=== PATIENT | female | born 1965 | race Caucasian/White ===

== ENCOUNTER 2016-08-03 12:06 | Emergency (ER) | payer SELFPAY ==
[2016-08-03 12:10] VITALS: BP 177/99; PULSE 96; TEMP 98.4; BMI 34.0
--- NOTE | 2016-08-03 12:55 | PDOC ---
History of Present Illness - General History Source: Patient Exam Limitations: No Limitations - History of Present Illness Initial Comments: 08/03/16 12:58 The patient is a 51-year-old woman with no past medical history who presents to the emergency department for further evaluation of left sided numbness and tingling sensations for the past 2 weeks. No fall, trauma. Patient states that for the past 2 weeks, she has been experiencing left sided numbing and tingling sensations. She states that this morning, her symptoms worsen, as she experienced a throbbing headache. She took 2 Motrin tablets, which helped alleviate her headache. 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 She reports she is aware of the steps to rule out a stroke, and she examined her self. She states she was able to perform all the activities. She denies noting any changes in strength and sensations on both sides and denies any slurred speech. She also states that she checks her sugar daily (as he is a diabetic) and initially attributed her tingling sensations to an elevated sugar,but states that her blood glucose was 90. No other complaints. No fever, chills, generalized weakness. No chest pain, lightheadedness, dizziness, palpitations, headache, visual changes, neck stiffness, neck pain, speech difficulty, confusion, shortness of breath, nausea, vomiting. Allergies: No Known Drug Allergies Past Surgical History: None reported Social History: Current everyday cigarette smoker (approximately 10/day). No ETOH use. No recreational drug use. Primary Care Physician: Dr. Jim Mendez [phone] <Anita Bolaños - Last Filed: 08/03/16 17:34> <Say Diaz - Last Filed: 08/03/16 18:43> - General Chief Complaint: CVA/TIA Stated Complaint: LT SIDE NUMBNESS Time Seen by Provider: 08/03/16 12:52 Past History <Anita Bolaños - Last Filed: 08/03/16 17:34> - Past Medical History Other medical history: NONE - Surgical History Appendectomy: Yes - Psycho/Social/Smoking Cessation Hx Anxiety: No Suicidal Ideation: No Smoking History: Current every day smoker Number of Cigarettes Smoked Daily: 10 Information on smoking cessation initiated: No Hx Alcohol Use: No Drug/Substance Use Hx: No Substance Use Type: None <Say Diaz - Last Filed: 08/03/16 18:43> - Past Medical History Allergies/Adverse Reactions: Allergies Allergy/AdvReac Type Severity Reaction Status Date / Time No Known Allergies Allergy Verified 08/03/16 12:10 Home Medications: Ambulatory Orders Aspirin [Tylor Chewable] 81 mg PO DAILY 08/03/16 Review of Systems - Review of Systems Able to Perform ROS?: Yes Comments:: 08/03/16 12:58 GENERAL/CONSTITUTIONAL: No fever or chills. No weakness. HEAD, EYES, EARS, NOSE AND THROAT: No change in vision. No ear pain or discharge. No sore throat. CARDIOVASCULAR: No chest pain or shortness of breath. RESPIRATORY: No cough, wheezing, or hemoptysis. GASTROINTESTINAL: No nausea, vomiting, diarrhea or constipation. GENITOURINARY: No dysuria, frequency, or change in urination. MUSCULOSKELETAL: No joint or muscle swelling or pain. No neck or back pain. SKIN: No rash NEUROLOGIC: Yes: Headache. Left sided weakness. No vertigo, loss of consciousness. ENDOCRINE: No increased thirst. No abnormal weight change. HEMATOLOGIC/LYMPHATIC: No anemia, easy bleeding, or history of blood clots. ALLERGIC/IMMUNOLOGIC: No hives or skin allergy. <Anita Bolaños - Last Filed: 08/03/16 17:34> *Physical Exam - Vital Signs Last Vital Signs Temp Pulse Resp BP Pulse Ox 98.4 F 96 H 20 177/99 98 08/03/16 12:07 08/03/16 12:07 08/03/16 12:07 08/03/16 12:07 08/03/16 12:07 - Physical Exam Comments: 08/03/16 12:58 GENERAL: Awake, alert, and fully oriented, in no acute distress HEAD: No signs of trauma EYES: PERRLA, EOMI, sclera anicteric, conjunctiva clear ENT: Auricles normal inspection, hearing grossly normal, nares patent, oropharynx clear without exudates. Moist mucosa NECK: Normal ROM, supple, no lymphadenopathy, JVD, or masses LUNGS: Breath sounds equal, clear to auscultation bilaterally. No wheezes, and no crackles HEART: Regular rate and rhythm, normal S1 and S2, no murmurs, rubs or gallops ABDOMEN: Soft, nontender, normoactive bowel sounds. No guarding, no rebound. No masses EXTREMITIES: Normal range of motion, no edema. No clubbing or cyanosis. No cords, erythema, or tenderness NEUROLOGICAL: Cranial nerves II through XII grossly intact. <Anita Bolaños - Last Filed: 08/03/16 17:34> - Vital Signs Last Vital Signs Temp Pulse Resp BP Pulse Ox 98.4 F 96 H 20 177/99 98 08/03/16 12:07 08/03/16 12:07 08/03/16 12:07 08/03/16 12:07 08/03/16 12:07 <Say Diaz - Last Filed: 08/03/16 18:43> Heart Score/ECG Review #1 08/03/16 12:49 EKG reviewed and interpreted by me. IMPRESSION: Sinus rhythm with occasional premature ventricular complexes. Otherwise normal EKG. <Anita Bolaños - Last Filed: 08/03/16 17:34> ED Treatment Course - LABORATORY CBC & Chemistry Diagram: 08/03/16 13:49 08/03/16 13:49 <Anita Bolaños - Last Filed: 08/03/16 17:34> - LABORATORY CBC & Chemistry Diagram: 08/03/16 13:49 08/03/16 13:49 <Say Diaz - Last Filed: 08/03/16 18:43> Medical Decision Making - Medical Decision Making 08/03/16 17:[address] Robles 08/03/16 17:12 Call placed to [facility]. Dr. Villalobos coat ironer hand. 08/03/16 17:[address] Villalobos coat ironer hand. <Anita Bolaños - Last Filed: 08/03/16 17:34> *DC/Admit/Observation/Transfer - Attestations Scribe Attestion: 08/03/16 12:58 Documentation prepared by Anita Bolaños, acting as medical insurance biller for Say Diaz DO. <Anita Bolaños - Last Filed: 08/03/16 17:34> - Discharge Dispostion Admit: No - Attestations Physician Attestion: 08/03/16 12:52 I, Dr. Say Diaz, attest that this document has been prepared under my direction and personally reviewed by me in its entirety. I further attest, that it accurately reflects all work, treatment, procedures and medical decision -making performed by me. <Say Diaz - Last Filed: 08/03/16 18:43> Diagnosis at time of Disposition: Paresthesia - Discharge Dispostion Disposition: HOME Condition at time of disposition: Good - Referrals Referrals: Vanessa Fernandez MD [Primary Care Provider] - Raimundo Salamanca MD [Staff Physician] - - Patient Instructions Printed Discharge Instructions: DI for Numbness/tingling Additional Instructions: Kristi- Sorry this took so long today. Every one of your tests was normal and I was unable to find the cause. Please see Dr. Salamanca tomorrow - Call his office first thing in the morning for the appointment time. Best- Dr. Say Diaz
[2016-08-03 13:59] LABS: BASOPHIL 0.4 % (0-2.0); EOSINOPHIL 1.8 % (0-4.5); MCH 30.4 pg (25.7-33.7); MCHC 33.7 g/dl (32.0-36.0); MEAN CELL VOLUME 90.3 fl (80-96); MEAN PLT VOLUME 8.3 fl (7.5-11.1); NEUTROPHILS 60.6 % (42.8-82.8); PLATELET COUNT 245 K/MM3 (134-434); RDW 13.2 % (11.6-15.6); WHITE BLOOD COUNT 8.8 K/mm3 (4.0-10.0)
[2016-08-03 14:20] LABS: INR 1.01 (0.82-1.09); PROTHROMBIN TIME (PATIENT) 11.1 SEC (9.98-11.88)
[2016-08-03 14:34] LABS: ALBUMIN 3.8 g/dl (3.4-5.0); ANION GAP 12 (8-16); CALCIUM 9.2 mg/dL (8.5-10.1); CO2 25 mmol/L (21-32); CREATININE 0.5 mg/dL (0.55-1.02); GLUCOSE,RANDOM 78 mg/dL (74-106); MAGNESIUM 1.8 mg/dL (1.8-2.4); SGPT/ALT 24 U/L (12-78)
[2016-08-03 14:39] LABS: ALK PHOS 83 U/L (45-117); BILIRUBIN,TOTAL 0.3 mg/dL (0.2-1.0); TOT PROT 7.7 g/dl (6.4-8.2); TROPONIN I < 0.02 ng/ml (0.00-0.05)
[2016-08-03 14:44] LABS: SGOT/AST 34 U/L (15-37)
[2016-08-03 15:39] LABS: THYROID STIMULATING HORMONE 1.54 uIU/ml (0.358-3.74)
--- NOTE | 2016-08-04 16:18 | EKG ---
Test Reason : Blood Pressure : / mmHG Vent. Rate : 069 BPM Atrial Rate : 069 BPM P-R Int : 166 ms QRS Dur : 078 ms QT Int : 388 ms P-R-T Axes : 054 029 013 degrees QTc Int : 415 ms SINUS RHYTHM WITH OCCASIONAL PREMATURE VENTRICULAR COMPLEXES OTHERWISE NORMAL ECG NO PREVIOUS ECGS AVAILABLE Confirmed by UTE BALDWIN, TYRONE ([id number]) on 08/04/2016 4:18:14 PM Referred By: Confirmed By:TYRONE UNGER MD
== END 2016-08-03 18:52 | disposition home or self-care (01) ==
LOC: JER 12:06
DX: R20.2 Paresthesia of skin (principal); F17.210 Nicotine dependence, cigarettes, uncomplicated
CPT/HCPCS: 36415; 70450-TC; 71020-TC; 80053; 82550; 82607; 82746; 83735; 84443; 84484; 85025; 85610; 93005; 93010; 99285-25

== ENCOUNTER 2017-07-06 18:15 | Emergency (ER) | payer OTHER ==
[2017-07-06 18:24] VITALS: BP 153/100; PULSE 91; TEMP 97.8; BMI 29.2
--- NOTE | 2017-07-06 18:27 | PDOC ---
Rapid Medical Evaluation Time Seen by Provider: 07/06/17 18:22 Medical Evaluation: Allergies Allergy/AdvReac Type Severity Reaction Status Date / Time No Known Allergies Allergy Verified 08/03/16 12:10 07/06/17 18:22 The patient presents with a chief complaint of: chest pain this morning and took two asa and then it went away now with a c/o lightheaded. I have performed a brief in-person evaluation of this patient; Pertinent physical exam findings: ambulatory, in no respiratory distress I have ordered the following: Pt found to have blood shot eyes and now states she feels nausea and slurred speech "talking weird" Pt needs to have Head CT and sent immediately tot he back for a r/o TIA cva The patient will proceed to the ED for further evaluation.
[2017-07-06] MEDS ORDERED: SODIUM CHLORIDE 0.9% 1000 ML INFUS.BAG IV ONE (18:42)
[2017-07-06] MEDS ORDERED: ONDANSETRON 4 MG/2 ML VIAL IVPUSH ONE (18:42)
[2017-07-06] MEDS ORDERED: FAMOTIDINE 20 MG/50 ML IVPB 20 MG/50 ML MG IVPB ONE ×2 (18:42→19:05)
--- NOTE | 2017-07-06 18:46 | PDOC ---
History of Present Illness <Lucille Porter - Last Filed: 07/06/17 23:14> - General History Source: Patient Exam Limitations: No Limitations - History of Present Illness Initial Comments: 07/07/17 01:47 Patient is a 52 year old female with no significant past medical history who presents to the ED with complaints of chest discomfort that began this morning at 8 am. Patient reports waking up this morning to go to work when she began to experience slight chest discomfort with associated Sob that she initially thought to be due to stress. She reports experiencing intermittent nausea, dizziness like the room is spinning, and weakness stating she felt like she was going to faint. Patient reports going home early from work due to symptoms and began to experience slight facial and bilateral fingertip tingling as well as feeling like she was not speaking correctly while reading out loud. Denies vomiting, fever, chills. Denies contact with sick individuals, out of state traveling. Denies trauma to affected area. Denies Allergies: None Social history: Current smoker. No alcohol. No illicit drugs. FamHx: Dad- Heart attack 61. Diabetes, Htn. Surgical history: Appendectomy PMD: Dr. Fernandez <Jose Donald - Last Filed: 07/07/17 01:47> - General Chief Complaint: CVA/TIA Stated Complaint: HEADACHE/TINGLING SENSATION Time Seen by Provider: 07/06/17 18:22 Past History - Past Medical History COPD: No - Surgical History Appendectomy: Yes - Immunization History Immunization Up to Date: Yes - Suicide/Smoking/Psychosocial Hx Smoking History: Current every day smoker Number of Cigarettes Smoked Daily: 20 Information on smoking cessation initiated: No Hx Alcohol Use: No Drug/Substance Use Hx: No Substance Use Type: None <Lucille Porter - Last Filed: 07/06/17 23:14> <Jose Donald - Last Filed: 07/07/17 01:47> - Past Medical History Allergies/Adverse Reactions: Allergies Allergy/AdvReac Type Severity Reaction Status Date / Time No Known Allergies Allergy Verified 07/06/17 18:22 Home Medications: Ambulatory Orders Aspirin [Tylor Chewable] 81 mg PO DAILY 08/03/16 Review of Systems - Review of Systems Able to Perform ROS?: Yes Comments:: 07/07/17 01:47 GENERAL/CONSTITUTIONAL: +weakness. No fever or chills.. HEAD, EYES, EARS, NOSE AND THROAT: No change in vision. No ear pain or discharge. No sore throat. GASTROINTESTINAL: No nausea, vomiting, diarrhea or constipation. GENITOURINARY: No dysuria, frequency, or change in urination. CARDIOVASCULAR: +Chest discomfort. +Sob. RESPIRATORY: No cough, wheezing, or hemoptysis. MUSCULOSKELETAL: No joint or muscle swelling or pain. No neck or back pain. SKIN: No rash NEUROLOGIC: +Dizziness. +Altered speech. No headache, vertigo, loss of consciousness, or change in strength/sensation. ENDOCRINE: No increased thirst. No abnormal weight change. HEMATOLOGIC/LYMPHATIC: No anemia, easy bleeding, or history of blood clots. ALLERGIC/IMMUNOLOGIC: No hives or skin allergy. <Jose Donald - Last Filed: 07/07/17 01:47> *Physical Exam - Vital Signs Last Vital Signs Temp Pulse Resp BP Pulse Ox 97.8 F 91 H 20 153/100 97 07/06/17 18:22 07/06/17 18:22 07/06/17 18:22 07/06/17 18:22 07/06/17 18:22 <Lucille Porter - Last Filed: 07/06/17 23:14> - Vital Signs Last Vital Signs Temp Pulse Resp BP Pulse Ox 97.8 F 91 H 20 153/100 97 07/06/17 18:22 07/06/17 18:22 18 18:22 07/06/17 18:22 07/06/17 18:22 - Physical Exam Comments: 07/07/17 01:47 GENERAL: Awake, alert, and fully oriented, in no acute distress HEAD: No signs of trauma EYES: PERRLA, EOMI, sclera anicteric, conjunctiva clear ENT: Auricles normal inspection, hearing grossly normal, nares patent, oropharynx clear without exudates. Moist mucosa NECK: Normal ROM, supple, no lymphadenopathy, JVD, or masses LUNGS: Breath sounds equal, clear to auscultation bilaterally. No wheezes, and no crackles HEART: Regular rate and rhythm, normal S1 and S2, no murmurs, rubs or gallops ABDOMEN: Soft, nontender, normoactive bowel sounds. No guarding, no rebound. No masses EXTREMITIES: Normal range of motion, no edema. No clubbing or cyanosis. No cords, erythema, or tenderness NEUROLOGICAL: Cranial nerves II through XII grossly intact. Normal speech, normal gait SKIN: Warm, Dry, normal turgor, no rashes or lesions noted. <Jose Donald - Last Filed: 07/07/17 01:47> Heart Score/ECG Review - History History: Slightly suspicious - Electrocardiogram EKG: Normal - Age Age: 45-65 - Risk Factors Risk Factors Heart Score: Yes Smoking History Based on the list above the patient has:: 1-2 risk factors - Troponin Troponin: </= normal limit - Score Heart Score - Total: 2 - ECG Intrepretation Comment:: 07/06/17 18:45 sinus at 87, nl axis, nl interval, t wave inversions III which are nonspecific, pvc, no acute st/t wave findings <Lucille Porter - Last Filed: 07/06/17 23:14> ED Treatment Course - LABORATORY CBC & Chemistry Diagram: 07/06/17 19:00 07/06/17 19:00 - RADIOLOGY Radiology Studies Ordered: Category Date Time Status HEAD CT WITHOUT CONTRAST [CT] Stat CT Scan 07/06/17 18:41 Ordered CHEST X-RAY PORTABLE* [RAD] Stat Radiology 07/06/17 18:41 Ordered <Lucille Porter - Last Filed: 07/06/17 23:14> - LABORATORY CBC & Chemistry Diagram: 07/06/17 19:00 07/06/17 19:00 - ADDITIONAL ORDERS Additional order review: Laboratory Results 07/06/17 07/06/17 07/06/17 20:17 19:00 19:00 PT with INR 10.60 INR 0.94 PTT (Actin FS) 32.7 Sodium 140 Potassium 4.1 Chloride 105 Carbon Dioxide 26 Anion Gap 9 BUN 17 Creatinine 0.8 Creat Clearance w eGFR > 60 Random Glucose 107 H Calcium 8.5 Magnesium 1.9 Total Bilirubin 0.2 D AST 12 L ALT 19 Alkaline Phosphatase 91 Creatine Kinase 50 60 Troponin I < 0.02 < 0.02 B-Natriuretic Peptide Total Protein 7.6 Albumin 3.6 Urine Color Urine Appearance Urine pH Ur Specific [place] Urine Protein Urine Glucose (UA) Urine Ketones Urine Blood Urine Nitrite Urine Bilirubin Urine Urobilinogen Ur Leukocyte Esterase Urine WBC (Auto) Urine RBC (Auto) Ur Epithelial Cells Urine Mucus Urine HCG, Qual 07/06/17 07/06/17 18:00 18:00 PT with INR INR PTT (Actin FS) Sodium Potassium Chloride Carbon Dioxide Anion Gap BUN Creatinine Creat Clearance w eGFR Random Glucose Calcium Magnesium Total Bilirubin AST ALT Alkaline Phosphatase Creatine Kinase Troponin I B-Natriuretic Peptide 40.38 Total Protein Albumin Urine Color Straw Urine Appearance Clear Urine pH 6.0 Ur Specific [place] 1.012 Urine Protein Negative Urine Glucose (UA) Negative Urine Ketones Negative Urine Blood 1+ H Urine Nitrite Negative Urine Bilirubin Negative Urine Urobilinogen Negative Ur Leukocyte Esterase Negative Urine WBC (Auto) 1 Urine RBC (Auto) 1 Ur Epithelial Cells Rare Urine Mucus Rare Urine HCG, Qual Negative 07/06/17 19:00 RBC 4.59 MCV 89.9 MCHC 34.0 RDW 13.5 MPV 8.3 Neutrophils % 61.1 Lymphocytes % 31.4 Monocytes % 4.7 Eosinophils % 1.4 Basophils % 1.4 D - Medications Given in the ED: ED Medications Discontinued Medications Generic Name Dose Route Start Last Admin Trade Name Freq PRN Reason Stop Dose Admin Famotidine/Sodium Chloride 20 mg in 50 mls @ 100 mls/hr 07/06/17 18:42 19:10 Pepcid 20 Mg Premixed Ivpb - IVPB 07/06/17 19:11 100 mls/hr ONCE ONE Administration Ondansetron HCl 4 mg 07/06/17 18:42 07/06/17 19:10 Zofran Injection IVPUSH 07/06/17 18:43 4 mg ONCE ONE Administration Sodium Chloride 1,000 ml 07/06/17 18:42 07/06/17 19:10 Normal Saline - IV 07/06/17 18:43 1,000 ml ONCE ONE Administration <Jose Donald - Last Filed: 07/07/17 01:47> Medical Decision Making - Medical Decision Making 07/06/17 18:43 a/p: 52yo female with cp earlier today while at work, assoc with sob, nausea -near syncope -had dizziness, became panicked and became numb all over -b/l face and hands -no unilateral weakness or numbness -normal speech now -will check labs, ekg, trop, head ct, monitor, reassess 07/06/17 20:44 re-eval: discussed lab and imaging results states feeling much better no lester no dizziness no paresthesias no cp/sob no abd pain will repeat trop in 3 hours 07/06/17 23:14 repeat trop negative no pain at this time ambulatory with a steady gait discussed smoking cessation and importance of quitting smoking. discussed following up with neurology, cardiology and a therapist for techniques in dealing with stress. pt states hx of anxiety and panic attacks. Stats she felt herself breathing heavy today and feeling nervous. discussed all reasons to return to the ED and need for follow up answered all questions heart score 2 - can follow up as outpt <Lucille Porter - Last Filed: 07/06/17 23:14> *DC/Admit/Observation/Transfer - Discharge Dispostion Admit: No - Attestations Physician Attestion: 07/06/17 23:19 I, Dr. Lucille Porter DO, attest that this document has been prepared under my direction and personally reviewed by me in its entirety. I further attest, that it accurately reflects all work, treatment, procedures and medical decision -making performed by me. <Lucille Porter - Last Filed: 07/06/17 23:14> - Attestations Scribe Attestion: 07/07/17 01:39 Documentation prepared by Jose Donald, acting as medical practice administrator for Lucille Porter DO, MD/. <Jose Donald - Last Filed: 07/07/17 01:47> Diagnosis at time of Disposition: Acute stress reaction, Chest pain - Discharge Dispostion Disposition: HOME Condition at time of disposition: Stable - Referrals Referrals: Vanessa Fernandez MD [Primary Care Provider] - Mitch Diop MD [Staff Physician] - Pacheco Steven MD [Staff Physician] - - Patient Instructions Printed Discharge Instructions: Stress: Is Simplicity the Answer?, DI for Chest Pain Additional Instructions: Please call your PMD tomorrow and schedule a follow up appointment. Please make an appointment to see the install and repair technician and the neurologist. Please make an appointment to talk with a therapist/psychiatrist about stress and anxiety. Please return to the ED with any further complaints.
[2017-07-06] MEDS ORDERED: ONDANSETRON 4 MG/2 ML VIAL ONE (19:04)
[2017-07-06 19:08] LABS: BASO % 1.4 % (0-2.0); EOS % 1.4 % (0-4.5); HEMATOCRIT 41.3 % (32.4-45.2); LYMPH % 31.4 % (8-40); MCH 30.6 pg (25.7-33.7); MEAN CELL VOLUME 89.9 fl (80-96); MEAN PLT VOLUME 8.3 fl (7.5-11.1); MONO % 4.7 % (3.8-10.2); NEUT % 61.1 % (42.8-82.8); PLATELET COUNT 252 K/MM3 (134-434); RBC 4.59 M/mm3 (3.60-5.2); RDW 13.5 % (11.6-15.6); WHITE BLOOD COUNT 9.4 K/mm3 (4.0-10.0)
[2017-07-06 19:17] LABS: HCG,QUALITATIVE URINE NEGATIVE; URINE APPEARANCE CLEAR; URINE BILIRUBIN NEGATIVE (NEGATIVE); URINE BLOOD 1+ (NEGATIVE); URINE COLOR STRAW; URINE GLUCOSE (UA) NEGATIVE (NEGATIVE); URINE KETONE NEGATIVE (NEGATIVE); URINE LEUK ESTERASE NEGATIVE (NEGATIVE); URINE NITRITE NEGATIVE (NEGATIVE); URINE PROTEIN NEGATIVE (NEGATIVE); URINE UROBILINOGEN NEGATIVE mg/dL (0.2-1.0)
[2017-07-06 19:21] LABS: EPI CELLS RARE /HPF (FEW); URINE MUCUS RARE
[2017-07-06 19:27] LABS: INR 0.94 (0.82-1.09); PROTHROMBIN TIME (PATIENT) 10.6 SEC (9.98-11.88)
[2017-07-06 19:30] LABS: ACTIVATED PTT 32.7 SECONDS (26.9-34.4); ALBUMIN 3.6 g/dl (3.4-5.0); ANION GAP 9 (8-16); BILIRUBIN,TOTAL 0.2 mg/dL (0.2-1.0); BLOOD UREA NITROGEN 17 mg/dL (7-18); CALCIUM 8.5 mg/dL (8.5-10.1); CHLORIDE 105 mmol/L (98-107); CO2 26 mmol/L (21-32); CREATININE 0.8 mg/dL (0.55-1.02); GLUCOSE,RANDOM 107 mg/dL (74-106); MAGNESIUM 1.9 mg/dL (1.8-2.4); POTASSIUM 4.1 mmol/L (3.5-5.1); SGOT/AST 12 U/L (15-37); SGPT/ALT 19 U/L (12-78); SODIUM 140 mmol/L (136-145); TOT PROT 7.6 g/dl (6.4-8.2)
[2017-07-06 19:33] LABS: ALK PHOS 91 U/L (45-117)
--- NOTE | 2017-07-07 08:47 | EKG ---
Test Reason : Blood Pressure : / mmHG Vent. Rate : 087 BPM Atrial Rate : 087 BPM P-R Int : 146 ms QRS Dur : 076 ms QT Int : 366 ms P-R-T Axes : 058 024 007 degrees QTc Int : 440 ms SINUS RHYTHM WITH OCCASIONAL PREMATURE VENTRICULAR COMPLEXES OTHERWISE NORMAL ECG WHEN COMPARED WITH ECG OF 03-AUG-2016 12:49, NO SIGNIFICANT CHANGE WAS FOUND Confirmed by REINA BALDWIN, LINH ([id number]) on 07/07/2017 8:46:49 AM Referred By: Confirmed By:LINH HUANG MD
== END 2017-07-06 23:26 | disposition home or self-care (01) ==
LOC: JER 18:15
PROC: 3E0337Z Introduction of Electrolytic and Water Balance Substance into Peripheral Vein, Percutaneous Approach (ICD-10-PCS; principal; 2017-07-06)
PROC: 3E033GC Introduction of Other Therapeutic Substance into Peripheral Vein, Percutaneous Approach (ICD-10-PCS; 2017-07-06)
DX: F43.0 Acute stress reaction (principal); R07.89 Other chest pain
CPT/HCPCS: 36415; 70450-TC; 71045-TC-FY; 80053; 81003; 81015; 82550; 83735; 83880; 84484; 84703; 85025; 85610; 85730; 93005; 93010; 99283-25

== ENCOUNTER 2017-10-05 11:41 | Emergency (ER) | payer SELFPAY ==
[2017-10-05 11:56] VITALS: BP 152/95; PULSE 84; TEMP 98.3; BMI 29.3
[2017-10-05 13:34] LABS: BASO % 0.4 % (0-2.0); EOS % 0.7 % (0-4.5); HEMATOCRIT 42.7 % (32.4-45.2); HEMOGLOBIN 14.5 GM/dL (10.7-15.3); LYMPH % 23.7 % (8-40); MCH 30.6 pg (25.7-33.7); MEAN CELL VOLUME 89.9 fl (80-96); MEAN PLT VOLUME 8.1 fl (7.5-11.1); MONO % 5.6 % (3.8-10.2); NEUT % 69.6 % (42.8-82.8); PLATELET COUNT 270 K/MM3 (134-434); RBC 4.75 M/mm3 (3.60-5.2); RDW 13.2 % (11.6-15.6); WHITE BLOOD COUNT 8.5 K/mm3 (4.0-10.0)
--- NOTE | 2017-10-05 13:44 | PDOC ---
History of Present Illness - General Chief Complaint: Lightheaded Stated Complaint: DIZZINESS, SWEATS Time Seen by Provider: 10/05/17 12:13 - History of Present Illness Initial Comments: 10/05/17 13:30 52 yo F with no significant pmh who p/w back pain, and lightheadedness. Patient states that at 7:40 PM yesterday evening she was standing and washing dishes when her left posterior thigh and lower leg became numb and she fell to to the ground, hitting the front of her head on a chair, with no LOC, neck, or back trauma. Patient states that she injured her lower back 01/2017 after falling down flight of stairs, and has been experiencing chronic lower back pain. Woke up this AM with no symptoms. at 0900 AM while sitting down at her job, patient developed acute frontal JIMENEZ, heaviness in head, lightheadedness, chest tightness , SOB, palpitations, and nausea without vomiting. Symtpoms resolved once patient arrived to ED. Continues to endorse frontal JIMENEZ and back pain. Back pain not improved with leaning, standing, or sitting. No perianal parasthesia, urinary retention, urinary or fecal incontinence. On NSAIDs as needed for pain. Currently denies F/C, diaphoresis, PND, orthopnea, leg swelling, N/V, CP, SOB, abdominal pain, diarrhea, constipation, urinary complaints, weakness, lightheadedness, sensory changes. PMHx: as noted above. H/o appendectomy. No h/o malignancy or chronic steroid use. ROS: as noted above SHx: Denies Etoh, tobacco, or illicit drug/ IVDA. Allergies: NKDA. Past History - Past Medical History Allergies/Adverse Reactions: Allergies Allergy/AdvReac Type Severity Reaction Status Date / Time No Known Allergies Allergy Verified 10/05/17 11:52 Home Medications: Ambulatory Orders Aspirin [Tylor Chewable] 81 mg PO DAILY 08/03/16 COPD: No DVT: No GI Disorders: Yes (gerd) - Surgical History Appendectomy: Yes - Immunization History Immunization Up to Date: Yes - Suicide/Smoking/Psychosocial Hx Smoking History: Current every day smoker Have you smoked in the past 12 months: Yes Number of Cigarettes Smoked Daily: 15 Information on smoking cessation initiated: Yes 'Breaking Loose' booklet given: 10/05/17 Hx Alcohol Use: No Drug/Substance Use Hx: No Substance Use Type: None Review of Systems - Review of Systems Comments:: 10/05/17 13:30 GENERAL/CONSTITUTIONAL: No fever or chills. No weakness. HEAD, EYES, EARS, NOSE AND THROAT: No change in vision. No ear pain or discharge. No sore throat. CARDIOVASCULAR: No chest pain or shortness of breath RESPIRATORY: No cough, wheezing, or hemoptysis. GASTROINTESTINAL: No nausea, vomiting, diarrhea or constipation. GENITOURINARY: No dysuria, frequency, or change in urination. MUSCULOSKELETAL: + Back pain. No joint or muscle swelling or pain. No neck pain. SKIN: No rash NEUROLOGIC: + Headache. Vertigo, loss of consciousness, or change in strength/ sensation. ENDOCRINE: No increased thirst. No abnormal weight change HEMATOLOGIC/LYMPHATIC: No anemia, easy bleeding, or history of blood clots. ALLERGIC/IMMUNOLOGIC: No hives or skin allergy. *Physical Exam - Vital Signs Last Vital Signs Temp Pulse Resp BP Pulse Ox 98.3 F 84 18 152/95 100 10/05/17 11:53 10/05/17 11:53 10/05/17 11:53 10/05/17 11:53 10/05/17 11:53 - Physical Exam Comments: 10/05/17 13:31 GENERAL: Awake, alert, and fully oriented, in no acute distress HEAD: No signs of trauma, normocephalic, atraumatic EYES: PERRLA, EOMI, sclera anicteric, conjunctiva clear ENT: Auricles normal inspection, hearing grossly normal, nares patent, oropharynx clear without exudates. Moist mucosa NECK: Normal ROM, supple, no lymphadenopathy, JVD, or masses LUNGS: No distress, speaks full sentences, clear to auscultation bilaterally HEART: Regular rate and rhythm, normal S1 and S2, no murmurs, rubs or gallops, peripheral pulses normal and equal bilaterally. ABDOMEN: Soft, nontender, normoactive bowel sounds. No guarding, no rebound. No masses Back: Neg bony deformity. Left sided lower paraspinal ttp. Neg stepoff. + L sided straight leg rasie test to 45 degrees. EXTREMITIES : Normal inspection, Normal range of motion, no edema. No clubbing or cyanosis. NEUROLOGICAL: Cranial nerves II through XII grossly intact. Normal speech, normal gait, no focal sensorimotor deficits. Normal ROSSY, HTS. Absent dysmetria on FTN. SKIN: Warm, Dry, normal turgor, no rashes or lesions noted ED Treatment Course - LABORATORY CBC & Chemistry Diagram: 10/05/17 13:22 10/05/17 13:22 - RADIOLOGY Radiology Studies Ordered: Category Date Time Status CXRPORT [CHEST X-RAY PORTABLE*] [RAD] Stat Radiology 10/05/17 13:06 Taken Medical Decision Making - Medical Decision Making 10/05/17 13:53 52 yo F with no significant pmh who p/w back pain, and lightheadedness. VSS, AF. L lower paraspinal ttp, and L sided positive straight leg raise test R/o disc herniation. No evidence of cauda equina or alarm symptoms to indicate more serious back pain pathology such as AAA, pyelonephritis, Ao dissection, epidural abscess. ACS/TN r/o. Will attempt to identify any underlying dysarrtyhmias, and assess for hypoglycemia, electrolyte abnml, toxic or metabolic derangements,acid-base disturbances, or underlying infection. Differential also includes panic or anxiety type disorder. ED Course: CBC, CMP, Cardiac, Pt/INR EKG, CXR Tylenol, Naproxen 10/05/17 14:05 CBC,CMP: Unremarkable 10/05/17 15:10 CXR: No acute pathology EKG: NSR with absent OLGA, STD, or TWI. Normal interval axis, and deviation. 10/05/17 16:37 Patient stable for d/c with return precautions. Advised to f/u with PMD, and cardiology. *DC/Admit/Observation/Transfer Diagnosis at time of Disposition: Radicular low back pain - Discharge Dispostion Condition at time of disposition: Stable Decision to Admit order: No - Referrals Referrals: Marvin Doherty MD [Staff Physician] - Mitch Diop MD [Staff Physician] - Vanessa Fernandez MD [Primary Care Provider] - - Patient Instructions Printed Discharge Instructions: DI for Lumbar Radiculopathy Additional Instructions: Please return to the emergency department with any new or worsening symptoms or concerns. Please follow up with your primary care physician within 72 hours. Print Language: VIETNAMESE - Post Discharge Activity - Attestations Physician Attestion: 10/05/17 13:31 I attest to the information provided in this note.
[2017-10-05] MEDS ORDERED: ACETAMINOPHEN 500 MG TABLET (FP) PO ONE (13:45)
[2017-10-05] MEDS ORDERED: NAPROXEN 500 MG TABLET (FP) PO ONE (13:54)
[2017-10-05 13:58] LABS: ALBUMIN 3.8 g/dl (3.4-5.0); ALK PHOS 82 U/L (45-117); ANION GAP 8 (8-16); BILIRUBIN,TOTAL 0.2 mg/dL (0.2-1.0); BLOOD UREA NITROGEN 9 mg/dL (7-18); CHLORIDE 104 mmol/L (98-107); CO2 26 mmol/L (21-32); CREATININE 0.5 mg/dL (0.55-1.02); GLUCOSE,RANDOM 86 mg/dL (74-106); POTASSIUM 4.4 mmol/L (3.5-5.1); SGOT/AST 17 U/L (15-37); SGPT/ALT 27 U/L (12-78); SODIUM 138 mmol/L (136-145); TOT PROT 7.7 g/dl (6.4-8.2)
[2017-10-05] MEDS ORDERED: ACETAMINOPHEN 325 MG TABLET (FP) ONE (14:18)
[2017-10-05] MEDS ORDERED: NAPROXEN 500 MG TABLET (FP) ONE (14:19)
[2017-10-05 14:22] LABS: INR 0.99 (0.82-1.09); PROTHROMBIN TIME (PATIENT) 11.2 SEC (9.7-13.0)
[2017-10-05 14:32] LABS: URINE APPEARANCE CLEAR; URINE BILIRUBIN NEGATIVE (<2.0 mg/dL); URINE BLOOD NEGATIVE (NEGATIVE); URINE COLOR STRAW; URINE GLUCOSE (UA) NEGATIVE (NEGATIVE); URINE KETONE NEGATIVE (NEGATIVE); URINE LEUK ESTERASE NEGATIVE (NEGATIVE); URINE NITRITE NEGATIVE (NEGATIVE); URINE PROTEIN NEGATIVE (NEGATIVE); URINE UROBILINOGEN NEGATIVE mg/dL (0.2-1.0)
--- NOTE | 2017-10-05 15:14 | PDOC ---
Attending Attestation - Resident Resident Name: Alfred Raymundo - ED Attending Attestation I have performed the following: I have examined & evaluated the patient, The case was reviewed & discussed with the resident, I agree w/resident's findings & plan, Exceptions are as noted - HPI HPI: 10/05/17 15:12 52y with chronic L lower back pain/sciatica (snce fall in late 2015) presents with lightheadedness. She was standing last night around 7pm washing dishes felt her leg give out and and she struck her head without loc. She states she felt fine afterwards, and stayed up for a bit before going to bed. This morning she felt well, went to work, and started to feel 'head heaviness' and lightheaded, palpitations, chest tightness around 9am. The sypmtoms resolved except for the back pain and lower back pain which radiates down th sulema LLE and tingling, which is familiar to her sciatica. there is no perineal loss of sensation nor problems with urinary or bowel incontintence. no fever/chills. GENERAL: The patient is awake, alert, and fully oriented, Nontoxic - in no acute distress. HEAD: Normocephalic, atraumatic. EYES: extraocular movements intact, sclera anicteric, conjunctiva clear. ENT: Normal voice, Moist mucous membranes. NECK: Normal range of motion, supple LUNGS: Breath sounds equal, clear to auscultation bilaterally. No wheezes, no rhonchi, no rales. HEART: Regular rate and rhythm, normal S1 and S2 without murmur, rub or gallop. ABDOMEN: Soft, nontender, normoactive bowel sounds. No guarding, no rebound. . No CVA tenderness EXTREMITIES: Normal range of motion, no edema. focal reproducible tendenress along superior aspect of L buttock. NEUROLOGICAL: No facial assymetry, Normal speech, symmetric movement of extrmeities, strength 5/5 in upper/lower extremities BACK: No focal bony tenderness along cervical/thoracic/lumbar spine. PSYCH: Normal mood, normal affect. SKIN: Warm, Dry, normal turgor, suspect sciatica for her back pain. suspect her lightheadedness may be due to anxiety/post traumatic headache. no signs of head truama, normal neuro exam. llabs unremarkble pt feeling improved after tylenol/motrin - Physicial Exam PE: 10/09/17 17:53 see above - Medical Decision Making 10/09/17 17:53 see above Heart Score/ECG Review - ECG Impressions Comment:: 10/05/17 16:21 Twelve-lead EKG was performed and reviewed by me. There is normal sinus rhythm with a normal rate. Rate of 73 Occasional PVCs noted The axis is normal. The intervals are normal. There is normal R wave progression Nonspecific T-wave inversion in lead III
[2017-10-05] MEDS ORDERED: METOCLOPRAMIDE HCL 10 MG TABLET (FP) PO ONE (15:42)
--- NOTE | 2017-10-06 10:27 | EKG ---
Test Reason : Blood Pressure : / mmHG Vent. Rate : 073 BPM Atrial Rate : 073 BPM P-R Int : 150 ms QRS Dur : 076 ms QT Int : 366 ms P-R-T Axes : 053 023 014 degrees QTc Int : 403 ms SINUS RHYTHM WITH OCCASIONAL PREMATURE VENTRICULAR COMPLEXES OTHERWISE NORMAL ECG WHEN COMPARED WITH ECG OF 06-JUL-2017 18:39, NO SIGNIFICANT CHANGE WAS FOUND Confirmed by JOEY CHRISTOPHER MD ([id number]) on 10/06/2017 10:27:02 AM Referred By: Confirmed By:JOEY CHRISTOPHER MD
== END 2017-10-05 16:45 | disposition home or self-care (01) ==
LOC: JER 11:41
DX: M54.16 Radiculopathy, lumbar region (principal); W18.39XA Other fall on same level, initial encounter; Y93.G1 Activity, food preparation and clean up; Y92.030 Kitchen in apartment as the place of occurrence of the external cause; Y99.8 Other external cause status
CPT/HCPCS: 36415; 71045-TC-FY; 72100-TC-FY; 80053; 81003; 82550; 84484; 85025; 85610; 93005; 93010; 99283-25

== ENCOUNTER 2018-01-21 18:06 | Emergency (ER) | payer SELFPAY ==
[2018-01-21 18:12] VITALS: BP 176/87; PULSE 87; TEMP 98.4; BMI 29.5
--- NOTE | 2018-01-21 18:32 | PDOC ---
History of Present Illness - General Chief Complaint: Pain Stated Complaint: PAIN Time Seen by Provider: 01/21/18 18:21 History Source: Patient - History of Present Illness Presenting Symptoms: Chest Pain Past History - Past Medical History Allergies/Adverse Reactions: Allergies Allergy/AdvReac Type Severity Reaction Status Date / Time No Known Allergies Allergy Verified 01/21/18 18:12 Home Medications: Ambulatory Orders Aspirin [Tylor Chewable] 81 mg PO DAILY 08/03/16 COPD: No DVT: No GI Disorders: Yes (gerd) - Surgical History Appendectomy: Yes - Immunization History Immunization Up to Date: Yes - Suicide/Smoking/Psychosocial Hx Smoking History: Current every day smoker Have you smoked in the past 12 months: Yes Number of Cigarettes Smoked Daily: 20 Information on smoking cessation initiated: No 'Breaking Loose' booklet given: 10/05/17 Hx Alcohol Use: No Drug/Substance Use Hx: No Substance Use Type: None Review of Systems - Review of Systems Constitutional: No: Chills, Fever Respiratory: No: Cough, Shortness of Breath, Wheezing Cardiac (ROS): Yes: Chest Pain. No: Lightheadedness, Palpitations, Syncope *Physical Exam - Vital Signs Last Vital Signs Temp Pulse Resp BP Pulse Ox 98.4 F 87 18 176/87 98 01/21/18 18:08 01/21/18 18:08 01/21/18 18:08 01/21/18 18:08 01/21/18 18:08 - Physical Exam General Appearance: Yes: Appropriately Dressed. No: Apparent Distress HEENT: positive: Normal Voice Neck: positive: Supple Respiratory/Chest: positive: Lungs Clear, Normal Breath Sounds. negative: Chest Tender, Respiratory Distress Cardiovascular: positive: Regular Rate, S1, S2 Gastrointestinal/Abdominal: positive: Soft. negative: Tender Extremity: negative: Pedal Edema Integumentary: positive: Dry, Warm Neurologic: positive: Fully Oriented, Alert, Normal Mood/Affect ED Treatment Course - RADIOLOGY Radiology Studies Ordered: Category Date Time Status CHEST PA & LAT [RAD] Stat Radiology 01/21/18 18:25 Taken Medical Decision Making - Medical Decision Making 01/21/18 18:29 52-year-old female, history of anxiety, smoker, here with chest pain. Patient complaining of crampy, non-radiating left-sided chest pain with an intensity of 5-6 out of 10 and intermittent. States pain only worsen when she lays on her L side. Has not taken anything for the pain. Denies any shortness of breath, diaphoresis, nausea, vomiting, palpitations, leg pain or swelling. No history of similar pain. No known history of CAD. No recent cardiac workup. No obvious risk factor for DVT or PE. Does not currently feel like her anxiety but endorses recent stress at work. Of note, patient was seen in ED approximately 7 months ago with atypical pain and ruled out with serial troponins. Patient was told to follow-up with charrer, but has not yet done so. See exam Atypical CP x 1 week Asx at this shyla, stable w/ clear chest/lungs -ekg -cxr 01/21/18 18:32 EKG negative as reviewed w/ Dr Gonsales in main ED. CXR negative. Pt continues to be CP free at this time. Feel comfortable discharging to f/u with her PMD this week. Reasons to return d/w pt. *DC/Admit/Observation/Transfer Diagnosis at time of Disposition: Chest pain Qualifiers: Chest pain type: unspecified Qualified Code(s): R07.9 - Chest pain, unspecified - Discharge Dispostion Disposition: HOME Condition at time of disposition: Good - Referrals Referrals: Vanessa Fernandez MD [Primary Care Provider] - - Patient Instructions Printed Discharge Instructions: DI for Atypical Chest Pain Additional Instructions: Your EKG and CXR were normal today Please follow up with your PMD for further evaluation - Post Discharge Activity
--- NOTE | 2018-01-22 18:09 | EKG ---
Test Reason : Blood Pressure : / mmHG Vent. Rate : 070 BPM Atrial Rate : 070 BPM P-R Int : 150 ms QRS Dur : 076 ms QT Int : 380 ms P-R-T Axes : 064 031 020 degrees QTc Int : 410 ms NORMAL SINUS RHYTHM NORMAL ECG WHEN COMPARED WITH ECG OF 05-OCT-2017 12:00, PREMATURE VENTRICULAR COMPLEXES ARE NO LONGER PRESENT Confirmed by NANI NOEL MD ([id number]) on 01/22/2018 6:08:53 PM Referred By: Confirmed By:NANI NOEL MD
== END 2018-01-21 19:14 | disposition home or self-care (01) ==
LOC: JERFT 18:06
DX: R07.9 Chest pain, unspecified (principal); F41.9 Anxiety disorder, unspecified; F17.210 Nicotine dependence, cigarettes, uncomplicated; K21.9 Gastro-esophageal reflux disease without esophagitis
CPT/HCPCS: 71046-TC-FY; 93005; 93010; 99281-25

== ENCOUNTER 2018-02-06 23:39 | Emergency (ER) | payer SELFPAY ==
--- NOTE | 2018-02-07 01:07 | PDOC ---
History of Present Illness <NaveenNilesh - Last Filed: 02/07/18 03:06> - History of Present Illness Initial Comments: 02/07/18 03:09 The patient is a 52 year old female with a history of anxiety who presents for evaluation of muscle cramping. The patient reports a several day history of bilateral lower extremity muscle cramping that worsened today prompting her presentation to the ED for further evaluation. She denies similar symptoms in the past and otherwise denies fevers, chills, SOB, chest pain, nausea, vomiting , abdominal pain, numbness, tingling, weakness, lower extremity swelling, recent long travel, or changes with urination or bowel movements. <Klever Ansari - Last Filed: 02/07/18 03:15> - General Chief Complaint: Muscle Cramping Stated Complaint: PAIN Time Seen by Provider: 02/07/18 01:06 Past History <NaveenNilesh - Last Filed: 02/07/18 03:06> - Past Medical History COPD: No DVT: No GI Disorders: Yes (gerd) - Surgical History Appendectomy: Yes - Immunization History Immunization Up to Date: Yes - Suicide/Smoking/Psychosocial Hx Smoking History: Current every day smoker Have you smoked in the past 12 months: Yes Number of Cigarettes Smoked Daily: 20 'Breaking Loose' booklet given: 10/05/17 Hx Alcohol Use: No Drug/Substance Use Hx: No Substance Use Type: None <Klever Ansari - Last Filed: 02/07/18 03:15> - Past Medical History Allergies/Adverse Reactions: Allergies Allergy/AdvReac Type Severity Reaction Status Date / Time No Known Allergies Allergy Verified 02/07/18 01:15 Home Medications: Ambulatory Orders Aspirin [Tylor Chewable] 81 mg PO DAILY 08/03/16 Review of Systems - Review of Systems Comments:: 02/07/18 03:11 Constitutional: No fevers, chills, fatigue, malaise HEENT: No Rhinorrhea, nasal congestion, visual changes Cardiovascular: No chest pain, syncope, palpitations, lightheadedness Respiratory: No Cough, SOB, Hemoptysis, Gastrointestinal: No Abdominal pain, Nausea, Vomiting, Constipation, Diarrhea, Melena Genitourinary: No Dysuria, Frequency, Urgency, Hesitancy, Hematuria, Flank pain Musculoskeletal: Muscle Cramping. No Myalgia, arthralgia Skin: No rashes, itching, bruising, pallor Neurologic: No Headache, Dizziness, Numbness, Weakness, or Tingling Psychiatric: No Hallucinations. No SI or HI <Klever Ansari - Last Filed: 02/07/18 03:15> *Physical Exam - Vital Signs Last Vital Signs Temp Pulse Resp BP Pulse Ox 97.9 F 71 18 150/75 97 02/06/18 23:40 02/06/18 23:40 02/06/18 23:40 02/06/18 23:40 02/06/18 23:40 <Nilesh Hodge - Last Filed: 02/07/18 03:06> - Physical Exam Comments: 02/07/18 03:11 General Appearance: Nourished. No Apparent Distress HEENT: No Pharyngeal Erythema, Tonsillar Exudate, Tonsillar Erythema Neck: No Cervical Lymphadenopathy Respiratory/Chest: Lungs Clear, Normal Breath Sounds. No Crackles, Rales, Rhonchi, Wheezing Cardiovascular: Regular Rhythm, Regular Rate. No Murmur, Gallops, Rubs Gastrointestinal/Abdominal: Normal Bowel Sounds, Soft. No Guarding, Rebound, Tenderness Musculoskeletal: No CVA Tenderness Extremity: Normal Capillary Refill, No edema noted. Integumentary: Normal Color, Dry, Warm Neurologic: Fully Oriented, Alert, Normal Mood/Affect, Normal Response, <Klever Ansari - Last Filed: 02/07/18 03:15> ED Treatment Course - LABORATORY CBC & Chemistry Diagram: 02/07/18 01:40 02/07/18 01:40 - ADDITIONAL ORDERS Additional order review: Laboratory Results 02/07/18 01:40 Sodium 141 Potassium 4.1 Chloride 108 H Carbon Dioxide 29 Anion Gap 5 L BUN 10 Creatinine 0.5 L Creat Clearance w eGFR > 60 Random Glucose 99 Calcium 8.9 Phosphorus 3.8 Magnesium 2.0 Total Bilirubin 0.3 AST 15 ALT 18 Alkaline Phosphatase 74 Creatine Kinase 70 Total Protein 6.7 Albumin 3.3 L 02/07/18 01:40 RBC 4.31 MCV 89.4 MCHC 34.0 RDW 12.9 MPV 8.1 Neutrophils % 45.2 D Lymphocytes % 46.0 H D Monocytes % 6.6 Eosinophils % 1.3 D Basophils % 0.9 - Medications Given in the ED: ED Medications Discontinued Medications Generic Name Dose Route Start Last Admin Trade Name Freq PRN Reason Stop Dose Admin Ketorolac Tromethamine 30 mg 02/07/18 01:29 02/07/18 01:46 Toradol Injection - IM 02/07/18 01:30 30 mg ONCE ONE Administration <Nilesh Hodge - Last Filed: 02/07/18 03:06> - LABORATORY CBC & Chemistry Diagram: 02/07/18 01:40 02/07/18 01:40 <Klever Ansari - Last Filed: 02/07/18 03:15> Medical Decision Making - Medical Decision Making 02/07/18 03:12 The patient is a 52 year old female with a history of anxiety who presents for evaluation of muscle cramping. Given the patient's history and physical exam, we obtained a cbc, cmp to evaluate for any electrolyte imbalances. CBC, cmp were unremarkable. We treated the patient with toradol with significant improvement in her symptoms. We are comfortable discharging the patient home with primary care provider follow up. We discussed the results, plan, and return precautions with the patient who voiced understanding and is agreeable with the plan. <CotyKlever - Last Filed: 02/07/18 03:15> *DC/Admit/Observation/Transfer <Nilesh Hodge - Last Filed: 02/07/18 03:06> <Klever Ansari - Last Filed: 02/07/18 03:15> Diagnosis at time of Disposition: Muscle cramp - Discharge Dispostion Disposition: HOME Condition at time of disposition: Fair - Referrals Referrals: Vanessa Fernandez MD [Primary Care Provider] - - Patient Instructions Printed Discharge Instructions: DI for Muscle Strain Additional Instructions: Follow up with your primary doctor within 1 week for further evaluation of your leg pain. If you experience worsening pain, swelling, weakness, or any other concerning symptoms, return to the ER immediately. - Post Discharge Activity
[2018-02-07 01:15] VITALS: BP 150/75; PULSE 71; TEMP 97.9; BMI 34.5
[2018-02-07] MEDS ORDERED: KETOROLAC TROMETHAMINE 30 MG/1 ML VIAL IM ONE (01:29)
[2018-02-07] MEDS ORDERED: KETOROLAC TROMETHAMINE 30 MG/1 ML VIAL ONE (01:35)
--- NOTE | 2018-02-07 01:42 | PDOC ---
Attending Attestation - Resident Resident Name: Klever Ansari - ED Attending Attestation I have performed the following: I have examined & evaluated the patient, The case was reviewed & discussed with the resident, I agree w/resident's findings & plan, Exceptions are as noted - HPI HPI: 02/07/18 01:39 The patient is a 52 year old female, with a past medical history of anxiety, who presents to the emergency department with bilateral leg cramping. Pt states that it has been going on for years. Denies any injury to either leg. States that she feels her muscles "tightening up" from time to time. Usually, she is able to straighten out her leg, and the pain resolves. However, today, she had an episode that lasted about a minute. States that her R leg tightened up and she had difficulty straightening it. However, it resolved spontaneously prior to arrival to ED. Currently denies any pain. Denies any swelling in her legs. Denies recent travel/immobilization. She denies recent fevers, chills, headache or dizziness. She denies recent nausea, vomit, diarrhea or constipation. She denies recent dysuria, frequency, urgency or hematuria. She denies recent chest pain or shortness of breath. Allergies: NKDA Past surgical history: Appendectomy Social history: Smoker. Denies EtOH use and recreational drug use. Primary Care Physician: Dr. Fernandez - Physicial Exam PE: 02/07/18 01:41 GENERAL: Awake, alert, and fully oriented, in no acute distress. HEAD: No signs of trauma EYES: PERRLA, EOMI, sclera anicteric, conjunctiva clear ENT: Auricles normal inspection, hearing grossly normal, nares patent, oropharynx clear without exudates. Moist mucosa NECK: Nontender, no stepoffs, Normal ROM, supple, no lymphadenopathy, JVD, or masses LUNGS: Breath sounds equal, clear to auscultation bilaterally. No wheezes, and no crackles HEART: Regular rate and rhythm, normal S1 and S2, no murmurs, rubs or gallops ABDOMEN: Soft, nontender, normoactive bowel sounds. No guarding, no rebound. No masses EXTREMITIES: Normal range of motion, no edema. No clubbing or cyanosis. No cords, erythema, or tenderness NEUROLOGICAL: Cranial nerves II through XII intact. 5/5 strength and sensation in all extremities, Normal speech, normal gait, normal cerebellar function SKIN: Warm, Dry, normal turgor, no rashes or lesions noted. - Medical Decision Making 02/07/18 01:41 52 F with bilateral leg cramps x years. No sign of DVT on exam. No DVT risk factors. - Labs, CPK 02/07/18 02:53 Labs wnl Pt is well appearing, with normal vitals. Clinically stable for DC at this time. I discussed the physical exam findings, ancillary test results and final diagnoses with the patient. I answered all of the patient's questions. The patient was satisfied with the care received and felt comfortable with the discharge plan and treatment plan. The patient agrees to follow up with the primary care physician within 24-72 hours.
[2018-02-07 01:53] LABS: BASO % 0.9 % (0-2.0); EOS % 1.3 % (0-4.5); HEMATOCRIT 38.6 % (32.4-45.2); HEMOGLOBIN 13.1 GM/dL (10.7-15.3); MCH 30.4 pg (25.7-33.7); MEAN CELL VOLUME 89.4 fl (80-96); MEAN PLT VOLUME 8.1 fl (7.5-11.1); MONO % 6.6 % (3.8-10.2); NEUT % 45.2 % (42.8-82.8); PLATELET COUNT 233 K/MM3 (134-434); RBC 4.31 M/mm3 (3.60-5.2); RDW 12.9 % (11.6-15.6); WHITE BLOOD COUNT 6.1 K/mm3 (4.0-10.0)
[2018-02-07 02:16] LABS: ALBUMIN 3.3 g/dl (3.4-5.0); ALK PHOS 74 U/L (45-117); ANION GAP 5 MMOL/L (8-16); BILIRUBIN,TOTAL 0.3 mg/dL (0.2-1); BLOOD UREA NITROGEN 10 mg/dL (7-18); CALCIUM 8.9 mg/dL (8.5-10.1); CHLORIDE 108 mmol/L (98-107); CO2 29 mmol/L (21-32); CREATININE 0.5 mg/dL (0.55-1.3); GLUCOSE,RANDOM 99 mg/dL (74-106); PHOSPHOROUS 3.8 mg/dL (2.5-4.9); POTASSIUM 4.1 mmol/L (3.5-5.1); SGOT/AST 15 U/L (15-37); SGPT/ALT 18 U/L (13-61); SODIUM 141 mmol/L (136-145); TOT PROT 6.7 g/dl (6.4-8.2)
== END 2018-02-07 03:19 | disposition home or self-care (01) ==
LOC: JER 23:39
PROC: 3E0233Z Introduction of Anti-inflammatory into Muscle, Percutaneous Approach (ICD-10-PCS; principal; 2018-02-06)
DX: R25.2 Cramp and spasm (principal); F41.9 Anxiety disorder, unspecified; F17.210 Nicotine dependence, cigarettes, uncomplicated; K21.9 Gastro-esophageal reflux disease without esophagitis
CPT/HCPCS: 36415; 80053; 82550; 83735; 84100; 85025; 99281-25

== ENCOUNTER 2018-02-12 21:49 | Emergency (ER) | payer SELFPAY ==
[2018-02-12 21:56] VITALS: BP 163/81; PULSE 88; TEMP 98.4; BMI 33.5
== END 2018-02-13 00:53 | disposition left against medical advice (07) ==
LOC: JER 21:49
DX: Z53.21 Procedure and treatment not carried out due to patient leaving prior to being seen by health care provider (principal)
CPT/HCPCS: 99281-25

== ENCOUNTER 2018-02-14 16:21 | Emergency (ER) | payer SELFPAY ==
--- NOTE | 2018-02-14 16:26 | PDOC ---
Rapid Medical Evaluation Time Seen by Provider: 02/14/18 16:23 Medical Evaluation: Allergies Allergy/AdvReac Type Severity Reaction Status Date / Time No Known Allergies Allergy Verified 02/12/18 21:56 02/14/18 16:23 Pt c/o: dizziness, anxious, intermittent weakness x 3 weeks, hx vertigo and anxiety but on no meds Pt on brief exam: 186/98, no fever Pt ordered for: labs, ekg, ua, cxr pt to proceed to the ED: 02/14/18 16:27 Discharge Disposition - Diagnosis Dizziness - Referrals - Patient Instructions - Post Discharge Activity
[2018-02-14 16:27] VITALS: BP 186/98; PULSE 86; TEMP 98.8; BMI 33.5
--- NOTE | 2018-02-14 16:55 | PDOC ---
History of Present Illness - General Chief Complaint: Lightheaded Stated Complaint: DIZZINESS Time Seen by Provider: 02/14/18 16:23 History Source: Patient Exam Limitations: No Limitations - History of Present Illness Initial Comments: 02/14/18 17:18 52 year old female with PMH panic disorder, GERD presents to ED for lightheadedness, SOB, palpitations x3 weeks, with a recent episode today while at work. She states she was finishing up her work and all of a sudden began to experience the previously stated symptoms in addition to blurry vision, nausea, tingling to fingers bilaterally, chest tightness. She denies chest pain, cough, fever, chills, vomiting, diarrhea, abdominal pain, lower extremity swelling. She states she has had left leg pain and numbness x4 months. Pt also complains of epigastric pain similar to her acid reflux. PCP - none, uninsured until Mar 01 Allergies - NKDA Past History - Past Medical History Allergies/Adverse Reactions: Allergies Allergy/AdvReac Type Severity Reaction Status Date / Time No Known Allergies Allergy Verified 02/14/18 16:24 Home Medications: Ambulatory Orders Aspirin [Tylor Chewable] 81 mg PO DAILY 08/03/16 COPD: No DVT: No GI Disorders: Yes (gerd) - Surgical History Appendectomy: Yes - Immunization History Immunization Up to Date: Yes - Suicide/Smoking/Psychosocial Hx Smoking History: Current every day smoker Have you smoked in the past 12 months: Yes Number of Cigarettes Smoked Daily: 20 Information on smoking cessation initiated: No 'Breaking Loose' booklet given: 10/05/17 Hx Alcohol Use: No Drug/Substance Use Hx: No Substance Use Type: None Review of Systems - Review of Systems Able to Perform ROS?: Yes Comments:: 02/14/18 17:23 General: admits to generalized weakness, sweats. denies fever. HEENT: admits to blurry vision. denies sore throat, rhinorrhea, ear pain. Heart: admits to chest tightness, palpitations, lightheadedness. denies chest pain, syncope, lower extremity swelling. Respiratory: admits to shortness of breath. denies cough, sputum production, hemoptysis. Abdomen: admits to nausea. denies abdominal pain, vomiting, diarrhea, constipation, blood in stool, bowel incontinence. : denies dysuria, increased urinary frequency, hematuria, urinary incontinence , flank pain. Back: denies back pain. Musculoskeletal: admits to pain to quadricep bilaterally. denies joint pain, joint swelling. Neurological: admits to numbness, tingling, weakness. denies headache, dizziness. Skin: denies rash, laceration, abrasion. *Physical Exam - Vital Signs Last Vital Signs Temp Pulse Resp BP Pulse Ox 98.8 F 86 18 186/98 H 100 02/14/18 16:25 02/14/18 16:25 02/14/18 16:25 02/14/18 16:25 02/14/18 16:25 - Physical Exam Comments: 02/14/18 17:25 Constitutional: Well-nourished, Well-developed, appearing stated age. HEENT: head is normocephalic, atraumatic. EOMI. PERRLA. Neck: supple. Full ROM. Heart: regular rhythm. no murmurs, rubs or gallops. Lungs: clear to auscultation bilaterally. no crackles, rhonchi or wheezing. no stridor. Abdomen: soft, nontender. normal bowel sounds. no rebound, guarding, masses. Extremities: Peripheral pulses intact and equal. No lower extremity edema. Back: straight leg testing positive bilaterally, L>R. tenderness to palpation of left low back. no midline L-spine or T-spine tenderness to palpation. Neurological: Alert. Oriented x3. CN2-12 intact. 4/5 strength to lower extremity bilaterally, secondary to quadricep pain. 5/5 plantar flexion bilateral lower extremities. 5/5 strength bilateral upper extremities. Full sensation all extremities and bilateral face. Psych: tearful, appears anxious. awake, alert, oriented x3. Follows commands. Answers questions appropriately. ED Treatment Course - LABORATORY CBC & Chemistry Diagram: 02/14/18 16:43 02/14/18 16:43 Medical Decision Making - Medical Decision Making 02/14/18 17:27 52 year old female with PMH panic disorder presents to ED for and episode of SOB , palpitations, nausea, blurry vision, numbness/tingling to bilateral fingers, generalized weakness. She also complains of chronic left lower back pain radiating down her left leg, and bilateral quadricep cramping. She was seen at [facility] ED 02/07/18 for lower extremity cramping, CMP was done, electrolytes were normal. Pt was advised to drink more water and less soda, she states she has been compliant and this has helped her symptoms. Nausea and blurry vision from today resolved on its own. Pt reported "heartburn like" symptoms. - Pepcid, Maalox ordered. Initial Vital Signs Temp Pulse Resp BP Pulse Ox 98.8 F 86 18 186/98 H 100 02/14/18 16:25 02/14/18 16:25 02/14/18 16:25 02/14/18 16:25 02/14/18 16:25 Afebrile. No tachycardia. No tachypnea. No hypoxia on room air. Hypertensive. -Repeat BP at 1737 -145/93 - Initial was likely secondary to anxiety EKG performed at 1741 - rate 70, regular rhythm, occasional PVCs, normal axis, normal intervals, no acute ST changes. 02/14/18 18:00 CBC WBC 10.0 K/mm3 (4.0-10.0) 02/14/18 16:43 RBC 4.77 M/mm3 (3.60-5.2) 02/14/18 16:43 Hgb 14.2 GM/dL (10.7-15.3) 02/14/18 16:43 Hct 43.4 % (32.4-45.2) 02/14/18 16:43 MCV 90.9 fl (80-96) 02/14/18 16:43 MCH 29.8 pg (25.7-33.7) 02/14/18 16:43 MCHC 32.8 g/dl (32.0-36.0) 02/14/18 16:43 RDW 13.5 % (11.6-15.6) 02/14/18 16:43 Plt Count 277 K/MM3 (134-434) 02/14/18 16:43 MPV 8.3 fl (7.5-11.1) 02/14/18 16:43 Absolute Neuts (auto) 6.4 K/mm3 (1.5-8.0) 02/14/18 16:43 Neutrophils % 63.7 % (42.8-82.8) D 02/14/18 16:43 Lymphocytes % 28.5 % (8-40) D 02/14/18 16:43 Monocytes % 6.0 % (3.8-10.2) 02/14/18 16:43 Eosinophils % 1.2 % (0-4.5) 02/14/18 16:43 Basophils % 0.6 % (0-2.0) 02/14/18 16:43 Nucleated RBC % 0 % (0-0) 02/14/18 16:43 No leukocytosis. No anemia. No thrombocytopenia. CMP Sodium 138 mmol/L (136-145) 02/14/18 16:43 Potassium 4.5 mmol/L (3.5-5.1) 02/14/18 16:43 Chloride 108 mmol/L (98-107) H 02/14/18 16:43 Carbon Dioxide 27 mmol/L (21-32) 02/14/18 16:43 Anion Gap 4 MMOL/L (8-16) L 02/14/18 16:43 BUN 14 mg/dL (7-18) 02/14/18 16:43 Creatinine 0.6 mg/dL (0.55-1.3) 02/14/18 16:43 Creat Clearance w eGFR > 60 (>60) 02/14/18 16:43 Random Glucose 93 mg/dL (74-106) 02/14/18 16:43 Calcium 9.6 mg/dL (8.5-10.1) 02/14/18 16:43 Magnesium 2.0 mg/dL (1.8-2.4) 02/14/18 16:43 Total Bilirubin 0.2 mg/dL (0.2-1) 02/14/18 16:43 AST 17 U/L (15-37) 02/14/18 16:43 ALT 23 U/L (13-61) 02/14/18 16:43 Alkaline Phosphatase 80 U/L (45-117) 02/14/18 16:43 Creatine Kinase 64 IU/L (26-192) 02/14/18 16:43 Troponin I < 0.02 ng/ml (0.00-0.05) 02/14/18 16:43 Total Protein 7.5 g/dl (6.4-8.2) 02/14/18 16:43 Albumin 3.7 g/dl (3.4-5.0) 02/14/18 16:43 No electrolyte abnormalities. No acute kidney injury. No hyperglycemia. No transaminitis. Initial troponin negative - Will repeat HEART score = 1 Urine Test Results Urine Color Colorless 02/14/18 16:43 Urine Appearance Clear 02/14/18 16:43 Urine pH 7.0 (5.0-8.0) 02/14/18 16:43 Ur Specific [place] 1.005 (1.010-1.035) L 02/14/18 16:43 Urine Protein Negative (NEGATIVE) 02/14/18 16:43 Urine Glucose (UA) Negative (NEGATIVE) 02/14/18 16:43 Urine Ketones Negative (NEGATIVE) 02/14/18 16:43 Urine Blood Negative (NEGATIVE) 02/14/18 16:43 Urine Nitrite Negative (NEGATIVE) 02/14/18 16:43 Urine Bilirubin Negative (<2.0 mg/dL) 02/14/18 16:43 Ur Leukocyte Esterase Negative (NEGATIVE) 02/14/18 16:43 No indication of urinary tract infection. CXR - sharp costophrenic angles, no infiltrate noted, no cardiomegaly, no pulmonary alveolar edema. 02/14/18 18:50 Repeat troponin ordered. 02/14/18 19:35 Second troponin negative. Pt will be discharged with follow up instructions and strict return precautions. Pt was provided with appt with the [facility] system. I discussed the importance of attending this appointment with the patient, she stated she will follow up. Repeat BP 138/78 *DC/Admit/Observation/Transfer Diagnosis at time of Disposition: Lightheadedness - Discharge Dispostion Disposition: HOME Condition at time of disposition: Stable Decision to Admit order: No - Referrals Referrals: Asaf Otero MD [Primary Care Provider] - - Patient Instructions Printed Discharge Instructions: DI for Anxiety -- Adult, DI for Panic Disorder , DI for Shortness of Breath Additional Instructions: DOCTOR'S INSTRUCTIONS: Your blood work was normal. Your EKG showed no changes from prior. Your chest X-ray was normal. I have provided you with a referral for a Primary Care Doctor. Attend the appointment give to you Monday02/16/18 at 01:30 PM. Your care is not complete until you follow up. Return to the Emergency Department for chest pain, shortness of breath, lightheadedness, passing out, palpitations, fever, vomiting, or any other new, worsening or concerning symptoms. - Post Discharge Activity
[2018-02-14 16:56] LABS: BASO % 0.6 % (0-2.0); EOS % 1.2 % (0-4.5); HEMATOCRIT 43.4 % (32.4-45.2); HEMOGLOBIN 14.2 GM/dL (10.7-15.3); LYMPH % 28.5 % (8-40); MCH 29.8 pg (25.7-33.7); MCHC 32.8 g/dl (32.0-36.0); MEAN CELL VOLUME 90.9 fl (80-96); MEAN PLT VOLUME 8.3 fl (7.5-11.1); NEUT % 63.7 % (42.8-82.8); PLATELET COUNT 277 K/MM3 (134-434); RBC 4.77 M/mm3 (3.60-5.2); RDW 13.5 % (11.6-15.6)
[2018-02-14] MEDS ORDERED: MAG HYDROX/AL HYDROX/SIMETH -MYLANTA- ORAL SUSPENSION PO ONE (17:17)
[2018-02-14] MEDS ORDERED: FAMOTIDINE 20 MG/50 ML IVPB 20 MG/50 ML MG IVPB ONE ×2 (17:18→17:21)
[2018-02-14 17:21] LABS: URINE APPEARANCE CLEAR; URINE BILIRUBIN NEGATIVE (<2.0 mg/dL); URINE COLOR COLORLESS; URINE GLUCOSE (UA) NEGATIVE (NEGATIVE); URINE KETONE NEGATIVE (NEGATIVE); URINE LEUK ESTERASE NEGATIVE (NEGATIVE); URINE NITRITE NEGATIVE (NEGATIVE); URINE PROTEIN NEGATIVE (NEGATIVE); URINE UROBILINOGEN NEGATIVE mg/dL (0.2-1.0)
[2018-02-14] MEDS ORDERED: MAG HYDROX/AL HYDROX/SIMETH 30 ML UNIT-DOSE CUP ONE (17:21)
[2018-02-14 17:32] LABS: ALBUMIN 3.7 g/dl (3.4-5.0); ALK PHOS 80 U/L (45-117); ANION GAP 4 MMOL/L (8-16); BILIRUBIN,TOTAL 0.2 mg/dL (0.2-1); BLOOD UREA NITROGEN 14 mg/dL (7-18); CALCIUM 9.6 mg/dL (8.5-10.1); CHLORIDE 108 mmol/L (98-107); CO2 27 mmol/L (21-32); CREATININE 0.6 mg/dL (0.55-1.3); GLUCOSE,RANDOM 93 mg/dL (74-106); POTASSIUM 4.5 mmol/L (3.5-5.1); SGOT/AST 17 U/L (15-37); SGPT/ALT 23 U/L (13-61); SODIUM 138 mmol/L (136-145); TOT PROT 7.5 g/dl (6.4-8.2)
--- NOTE | 2018-02-14 20:01 | PDOC ---
Attending Attestation - Resident Resident Name: Adri Garcia - ED Attending Attestation I have performed the following: I have examined & evaluated the patient, The case was reviewed & discussed with the resident, I agree w/resident's findings & plan, Exceptions are as noted - Physicial Exam PE: 02/14/18 19:58 Patient is awake and alert well-nourished, symptom-free Normocephalic, atraumatic PERRLA, EOMI CTA RRR Abdomen soft, nontender, nondistended No lower extremity edema - Medical Decision Making 02/14/18 19:59 52-year-old female with history of panic attacks presents to the ER generalized feeling of being unwell, hyperventilation, carpopedal spasm, chest tightness and nausea similar in nature to her previous panic attacks. In the ER, patient is asymptomatic. EKG shows no evidence of acute ischemia. Chest x-ray revealed no evidence of cardiomegaly/infiltrate or effusion. Patient's heart score is noted to be 1. Serial high sensitivity troponins are within normal limit. I do not suspect ACS or PE at this time. Patient has a scheduled medical follow-up in 48 hours. Will discharge with outpatient follow-up. <Avinash Mejia - Last Filed: 02/14/18 19:57> - HPI HPI: 02/14/18 20:02 The patient is a 52 year old female, with a significant past medical history of GERD and panic disorder, who presents to the ED complaining of lightheadedness, SOB, blurry vision, nausea, chest tightness and palpitations for the past 3 weeks. She reports that she was finishing her day at work when the symptoms suddenly began. She also notes that she had a tingling sensation to her fingers on both hands. This prompted her to come to the ED. The patient denies headache, fever, chills, nausea, vomiting, diarrhea or constipation. Denies dysuria, frequency, urgency and hematuria. Allergies: None Past surgical history: Appendectomy Social History: (+) Cigarette use (20 daily). No alcohol or drug use reported <Munir Santos - Last Filed: 02/14/18 20:02>
--- NOTE | 2018-02-15 11:45 | EKG ---
Test Reason : Blood Pressure : / mmHG Vent. Rate : 070 BPM Atrial Rate : 070 BPM P-R Int : 164 ms QRS Dur : 076 ms QT Int : 378 ms P-R-T Axes : 060 030 015 degrees QTc Int : 408 ms SINUS RHYTHM WITH OCCASIONAL PREMATURE VENTRICULAR COMPLEXES SEPTAL INFARCT , AGE UNDETERMINED ABNORMAL ECG WHEN COMPARED WITH ECG OF 21-JAN-2018 18:29, PREMATURE VENTRICULAR COMPLEXES ARE NOW PRESENT SEPTAL INFARCT IS NOW PRESENT Confirmed by UTE BALDWIN, TYRONE ([id number]) on 02/15/2018 11:44:57 AM Referred By: Confirmed By:TYRONE UNGER MD
== END 2018-02-14 20:30 | disposition home or self-care (01) ==
LOC: SUPCPDRO 16:21 → JER 16:21
PROC: 3E033GC Introduction of Other Therapeutic Substance into Peripheral Vein, Percutaneous Approach (ICD-10-PCS; principal; 2018-02-14)
DX: F41.0 Panic disorder [episodic paroxysmal anxiety] (principal); F41.9 Anxiety disorder, unspecified; R06.4 Hyperventilation
CPT/HCPCS: 36415; 71045-TC-FY; 80053; 81003; 82550; 83735; 84484; 85025; 87086; 93005; 93010; 99282-25

== ENCOUNTER 2018-02-23 13:52 | Emergency (ER) | payer OTHER ==
[2018-02-23 14:03] VITALS: TEMP 98.7; BMI 34.5
[2018-02-23] MEDS ORDERED: METOCLOPRAMIDE HCL INJECTION 10 MG/2 ML VIAL IVPB ONE (15:23)
--- NOTE | 2018-02-23 15:24 | PDOC ---
History of Present Illness - General History Source: Patient - History of Present Illness Timing/Duration: reports: other (this am) <JuniorPatriciaAlem - Last Filed: 02/23/18 16:54> <Kishore Martin - Last Filed: 02/26/18 11:07> - General Chief Complaint: Head/Neck problem Stated Complaint: HEADACHE, FACE NUMBNESS Time Seen by Provider: 02/23/18 15:10 Past History - Past Medical History COPD: No DVT: No GI Disorders: Yes (gerd) Psychiatric Problems: Yes (ANXIETY) - Surgical History Appendectomy: Yes - Immunization History Immunization Up to Date: Yes - Suicide/Smoking/Psychosocial Hx Smoking History: Current every day smoker Have you smoked in the past 12 months: Yes Number of Cigarettes Smoked Daily: 20 Information on smoking cessation initiated: Yes 'Breaking Loose' booklet given: 10/05/17 Hx Alcohol Use: No Drug/Substance Use Hx: No Substance Use Type: None <JuniorRustyKarine - Last Filed: 02/23/18 16:54> <Kishore Martin - Last Filed: 02/26/18 11:07> - Past Medical History Allergies/Adverse Reactions: Allergies Allergy/AdvReac Type Severity Reaction Status Date / Time No Known Allergies Allergy Verified 02/23/18 14:03 Home Medications: Ambulatory Orders Aspirin [Tylor Chewable] 81 mg PO DAILY 08/03/16 Fluoxetine HCl [Prozac] 10 mg PO DAILY 02/23/18 Review of Systems - Review of Systems HEENTM: No: Eye Pain, Blurred Vision ABD/GI: No: Nausea, Vomiting Musculoskeletal: No: Neck Pain Neurological: Yes: Headache, Numbness, Tingling. No: Weakness, Dizziness <JuniorPatricia-Karine - Last Filed: 02/23/18 16:54> *Physical Exam - Vital Signs Last Vital Signs Temp Pulse Resp BP Pulse Ox 98.7 F 84 18 172/83 H 96 02/23/18 14:00 02/23/18 14:00 02/23/18 14:00 02/23/18 14:00 02/23/18 14:00 - Physical Exam General Appearance: Yes: Appropriately Dressed. No: Apparent Distress HEENT: positive: Normal Voice Neck: positive: Supple Respiratory/Chest: negative: Respiratory Distress Integumentary: positive: Dry, Warm Neurologic: positive: environmental emergencies assistant II-XII NML intact, Fully Oriented, Alert, Normal Mood/ Affect, Motor Strength 5/5, Sensory Deficit (to L face compared to R, no drift, no ataxia), Finger to Nose. negative: Facial Droop <Jacklyn Pacheco - Last Filed: 02/23/18 16:54> - Vital Signs Last Vital Signs Temp Pulse Resp BP Pulse Ox 98.7 F 65 18 154/75 97 02/23/18 14:00 02/23/18 16:22 02/23/18 16:22 02/23/18 16:22 02/23/18 16:22 <Kishore Martin - Last Filed: 02/26/18 11:07> ED Treatment Course - LABORATORY CBC & Chemistry Diagram: 02/23/18 15:35 02/23/18 15:35 - RADIOLOGY Radiology Studies Ordered: Category Date Time Status HEAD CT WITHOUT CONTRAST [CT] Stat CT Scan 02/23/18 15:22 Ordered <Jacklyn Pacheco - Last Filed: 02/23/18 16:54> - LABORATORY CBC & Chemistry Diagram: 02/23/18 15:35 02/23/18 15:35 - ADDITIONAL ORDERS Additional order review: 02/23/18 15:35 RBC 4.45 MCV 90.1 MCHC 33.7 RDW 13.2 MPV 8.2 Neutrophils % 70.7 Lymphocytes % 22.3 D Monocytes % 5.6 Eosinophils % 0.7 Basophils % 0.7 - Medications Given in the ED: ED Medications Discontinued Medications Generic Name Dose Route Start Last Admin Trade Name Fidelina PRN Reason Stop Dose Admin Metoclopramide HCl 10 mg 02/23/18 15:23 02/23/18 15:44 Reglan Injection - IVPB 02/23/18 15:24 Not Given ONCE ONE <Kishore Martin - Last Filed: 02/26/18 11:07> Medical Decision Making - Medical Decision Making 02/23/18 15:23 52-year-old female, history of GERD and panic disorder with multiple ED visits over the past 1-3 weeks for various complaints, now presents with left temporal headache that started this morning. Feels "like a puncture" per patient, constant with left facial tingling and possibly numbness. Patient reports having had headaches in the past, but that this is different. No dizziness, n/v , neck pain, visual changes or extremity weakness. Took Motrin for pain with some relief. See exam New onset JIMENEZ w/ L facial numbness Exam notable for BP of 172/83 w/ ? sensory deficit to L face, otherwise no focal deficits -labs including ESR -CTH -pain controlled at present 02/23/18 15:28 02/23/18 16:[address] head normal. Patient pain-free at this time and stable for discharge to follow-up with neurology if headache persists <Jacklyn Pacheco - Last Filed: 02/23/18 16:54> - Medical Decision Making I reviewed the case of the mid-level practitioner and was available for consultation while in the emergency department <Kishore Martin - Last Filed: 02/26/18 11:07> *DC/Admit/Observation/Transfer <Jacklyn Pacheco - Last Filed: 02/23/18 16:54> <Kishore Martin - Last Filed: 02/26/18 11:07> Diagnosis at time of Disposition: Headache Qualifiers: Headache type: unspecified Headache chronicity pattern: acute headache Intractability: not intractable Qualified Code(s): R51 - Headache - Discharge Dispostion Disposition: HOME Condition at time of disposition: Improved - Referrals Referrals: Vanessa Fernandez MD [Primary Care Provider] - Raimundo Salamanca MD [Staff Physician] - - Patient Instructions Printed Discharge Instructions: DI for Headache Additional Instructions: Your CAT scan and labs were normal today. Take Motrin or Tylenol for pain. If headache continues, follow up with Dr. Salamanca of neurology for further evaluation
[2018-02-23 15:45] LABS: BASO % 0.7 % (0-2.0); EOS % 0.7 % (0-4.5); HEMATOCRIT 40.1 % (32.4-45.2); HEMOGLOBIN 13.5 GM/dL (10.7-15.3); LYMPH % 22.3 % (8-40); MCH 30.4 pg (25.7-33.7); MCHC 33.7 g/dl (32.0-36.0); MEAN CELL VOLUME 90.1 fl (80-96); MEAN PLT VOLUME 8.2 fl (7.5-11.1); MONO % 5.6 % (3.8-10.2); NEUT % 70.7 % (42.8-82.8); PLATELET COUNT 252 K/MM3 (134-434); RBC 4.45 M/mm3 (3.60-5.2); RDW 13.2 % (11.6-15.6); WHITE BLOOD COUNT 8.9 K/mm3 (4.0-10.0)
[2018-02-23 16:12] LABS: ALBUMIN 3.6 g/dl (3.4-5.0); ALK PHOS 73 U/L (45-117); ANION GAP 6 MMOL/L (8-16); BILIRUBIN,TOTAL 0.2 mg/dL (0.2-1); BLOOD UREA NITROGEN 13 mg/dL (7-18); CALCIUM 8.5 mg/dL (8.5-10.1); CHLORIDE 106 mmol/L (98-107); CO2 28 mmol/L (21-32); CREATININE 0.6 mg/dL (0.55-1.3); GLUCOSE,RANDOM 103 mg/dL (74-106); POTASSIUM 4.5 mmol/L (3.5-5.1); SGOT/AST 14 U/L (15-37); SGPT/ALT 19 U/L (13-61); SODIUM 140 mmol/L (136-145)
[2018-02-23 16:23] VITALS: BP 154/75; PULSE 65
--- NOTE | 2018-02-25 14:05 | EKG ---
Test Reason : Blood Pressure : / mmHG Vent. Rate : 079 BPM Atrial Rate : 079 BPM P-R Int : 150 ms QRS Dur : 076 ms QT Int : 372 ms P-R-T Axes : 062 033 027 degrees QTc Int : 426 ms SINUS RHYTHM WITH OCCASIONAL PREMATURE VENTRICULAR COMPLEXES OTHERWISE NORMAL ECG WHEN COMPARED WITH ECG OF 14-FEB-2018 17:41, NO SIGNIFICANT CHANGE WAS FOUND Confirmed by MD Negra, Lai ([id number]) on 02/25/2018 2:05:13 PM Referred By: Confirmed By:Lai Omer MD
== END 2018-02-23 17:24 | disposition home or self-care (01) ==
LOC: JER 13:52
DX: R51 Headache (principal); K21.9 Gastro-esophageal reflux disease without esophagitis; F41.0 Panic disorder [episodic paroxysmal anxiety]
CPT/HCPCS: 36415; 70450-TC; 80053; 85025; 85651; 93005; 93010; 99282-25

== ENCOUNTER 2018-11-30 16:00 | Emergency (ER) | payer OTHER ==
[2018-11-30 16:11] VITALS: BP 146/71; PULSE 86; TEMP 98.1; BMI 35.9
[2018-11-30] MEDS ORDERED: KETOROLAC TROMETHAMINE 60 MG/2 ML VIAL IM ONE (16:48)
[2018-11-30] MEDS ORDERED: METHOCARBAMOL 500 MG TABLET PO ONE (16:48)
[2018-11-30] MEDS ORDERED: KETOROLAC TROMETHAMINE 60 MG/2 ML VIAL ONE (16:49)
[2018-11-30] MEDS ORDERED: METHOCARBAMOL 500 MG TABLET ONE (16:50)
--- NOTE | 2018-11-30 17:12 | PDOC ---
History of Present Illness - General Chief Complaint: Pain, Acute Stated Complaint: KNEE PAIN/ FALL Time Seen by Provider: 11/30/18 16:30 History Source: Patient Exam Limitations: Clinical Condition - History of Present Illness Initial Comments: 11/30/18 17:08 Patient with history of sciatica present with complaint of 2 day history of pain from bilateral hip to lower leg with pain to bilateral calf muscle and swelling to bilateral ankles. Patient reported increased pain to bilateral knees and ankles with ambulation. Patient report feeling with numbness to bilateral extremity due to history of sciatica 3 days ago and falling on bilateral knees .Denies hitting head or loss of consciousness. Denies twisting her ankle ankle injury during fall. Patient reported intermittent tingling sensation in bilateral lower extremity. Denies saddle paresthesia, urinary or fecal incontinence. Denies claudications. Timing/Duration: other (2 days) Past History - Past Medical History Allergies/Adverse Reactions: Allergies Allergy/AdvReac Type Severity Reaction Status Date / Time No Known Allergies Allergy Verified 11/30/18 16:11 Home Medications: Ambulatory Orders Aspirin [Tylor Chewable] 81 mg PO DAILY 08/03/16 Fluoxetine HCl [Prozac] 10 mg PO DAILY 02/23/18 Ketorolac Tromethamine [Toradol] 10 mg PO TID PRN #21 tablet 11/30/18 Methocarbamol [Robaxin -] 500 mg PO BID #14 tablet 11/30/18 COPD: No DVT: No GI Disorders: Yes (gerd) Psychiatric Problems: Yes (ANXIETY) - Surgical History Appendectomy: Yes - Immunization History Immunization Up to Date: Yes - Suicide/Smoking/Psychosocial Hx Smoking History: Current every day smoker Have you smoked in the past 12 months: Yes Number of Cigarettes Smoked Daily: 10 Information on smoking cessation initiated: No 'Breaking Loose' booklet given: 10/05/17 Hx Alcohol Use: No Drug/Substance Use Hx: No Substance Use Type: None Review of Systems - Review of Systems Able to Perform ROS?: Yes Is the patient limited Maori proficient: No Constitutional: No: Fever, Malaise, Weakness HEENTM: No: Symptoms Reported Respiratory: No: Symptoms reported Cardiac (ROS): No: Symptoms Reported ABD/GI: No: Symptoms Reported Musculoskeletal: Yes: Symptoms Reported, See HPI, Joint Pain (b/l knees), Joint Swelling (b/l ankles), Muscle Pain (b/l thighs and lower legs). No: Back Pain, Muscle Weakness Integumentary: No: Symptoms Reported, See HPI Neurological: Yes: Symptoms reported, See HPI, Tingling (intermittent tingling to b/l LE). No: Numbness, Paresthesia, Weakness All Other Systems: Reviewed and Negative *Physical Exam - Vital Signs Last Vital Signs Temp Pulse Resp BP Pulse Ox 98.1 F 86 16 146/71 98 11/30/18 16:07 11/30/18 16:07 11/30/18 16:07 11/30/18 16:07 11/30/18 16:07 - Physical Exam Comments: 11/30/18 17:17 GENERAL: Well developed, well nourished. Awake and alert in mild acute distress. PULMONARY: No evidence of respiratory distress. MUSCULOSKELETAL : Moderate subjective tenderness to whole bilateral lower extremities. Moderate tenderness to bilateral calf muscle. Moderate tenderness to bilateral anterior knees. Negative anterior-posterior drawer tests of bilateral knees and ankles. No joint effusions to bilateral knees. Mild swelling to lateral malleolus of bilateral ankles. No bony deformities EXTREMITIES: No cyanosis. No clubbing. No edema. Moderate subjective bilateral calf tenderness. Negative Homans sign bilateral. SKIN: Warm and dry. Normal capillary refill. Mild swelling to the lateral edge of malleolus of bilateral ankle NEUROLOGICAL: Alert, awake, appropriate. No motor deficits in the lower extremities. Gait is normal without ataxia. PSYCHIATRIC: Cooperative. Good eye contact. Appropriate mood and affect. General Appearance: Yes: Nourished, Appropriately Dressed, Apparent Distress, Mild Distress ED Treatment Course - RADIOLOGY Radiology Studies Ordered: Category Date Time Status ANKLE & FOOT-LEFT* [RAD] Stat Radiology 11/30/18 16:42 Ordered ANKLE & FOOT-RIGHT* [RAD] Stat Radiology 11/30/18 16:42 Ordered KNEE 3 POS-LEFT [RAD] Stat Radiology 11/30/18 16:42 Ordered KNEE 3 POS-RIGHT [RAD] Stat Radiology 11/30/18 16:42 Ordered DUPLEX VASCUL US-2LEGS [US] Stat Ultrasound 11/30/18 16:47 Ordered - Medications Given in the ED: ED Medications Discontinued Medications Generic Name Dose Route Start Last Admin Trade Name Freq PRN Reason Stop Dose Admin Ketorolac Tromethamine 60 mg 11/30/18 16:48 11/30/18 17:02 Toradol Injection - IM 11/30/18 16:49 60 mg ONCE ONE Administration Methocarbamol 500 mg 11/30/18 16:48 11/30/18 17:02 Robaxin - PO 11/30/18 16:49 500 mg ONCE ONE Administration Medical Decision Making - Medical Decision Making 11/30/18 17:12 Patient with history of sciatica present with complaint of 2 day history of pain from bilateral hip to lower leg with pain to bilateral calf muscle and swelling to bilateral ankles. Patient reported increased pain to bilateral knees and ankles with ambulation. Patient report feeling with numbness to bilateral extremity due to history of sciatica 3 days ago and falling on bilateral knees .Denies hitting head or loss of consciousness. Denies twisting her ankle ankle injury during fall. Patient reported intermittent tingling sensation in bilateral lower extremity Exam significant for subjective moderate tenderness to bilateral knees and ankles. Mild swelling to lateral aspect of bilateral knees. No joint effusions. No increased warmth or swelling to bilateral cuff muscle. negative Homans signs. Symptoms likely muscle skeletal pain from fall causing sprain versus less likely DVT. X-ray of bilateral knees and ankles ordered to rule out acute pathology. Duplex of bilateral lower extremity ordered to rule out DVT. Toradol 60 mg IM ordered for pain and Robaxin 500 mg by mouth ordered for spasm . Treat based on imaging results 11/30/18 18:21 Bilateral duplex ultrasound shows no DVT. X-ray of bilateral knees and ankle shows no acute fracture or dislocation. Patient symptoms likely muscle skeletal pain from fall. Patient be discharged home on PO Toradol and Robaxin for pain and spasm as needed with orthopedics follow-up. Plan discussed with patient. Patient is stable for discharge *DC/Admit/Observation/Transfer Diagnosis at time of Disposition: Contusion of left knee, initial encounter, Contusion of right knee, initial encounter Fall Qualifiers: Encounter type: initial encounter Qualified Code(s): W19.XXXA - Unspecified fall, initial encounter Ankle sprain Qualifiers: Encounter type: initial encounter Involved ligament of ankle: unspecified ligament Laterality: unspecified laterality Qualified Code(s): S93.409A - Sprain of unspecified ligament of unspecified ankle, initial encounter - Discharge Dispostion Disposition: HOME Condition at time of disposition: Stable Decision to Admit order: No - Prescriptions Prescriptions: Ketorolac Tromethamine [Toradol] 10 mg PO TID PRN #21 tablet PRN Reason: pain Methocarbamol [Robaxin -] 500 mg PO BID #14 tablet - Referrals Referrals: Vanessa Fernandez MD [Primary Care Provider] - - Patient Instructions Printed Discharge Instructions: DI for Knee Sprain, DI for Ankle Sprain Additional Instructions: Your leg ultrasound shows no blood clots. The x-ray of bilateral knee and ankle shows no acute fracture or dislocation .your pain is likely caused by sprain. Take prescribed medication as needed for pain and spasm. Follow-up referred orthopedics if no improvement in 4 days - Post Discharge Activity
== END 2018-11-30 18:21 | disposition home or self-care (01) ==
LOC: JERFT 16:00
PROC: 3E0233Z Introduction of Anti-inflammatory into Muscle, Percutaneous Approach (ICD-10-PCS; principal; 2018-11-30)
DX: S80.02XA Contusion of left knee, initial encounter (principal); S80.01XA Contusion of right knee, initial encounter; S93.492A Sprain of other ligament of left ankle, initial encounter; S93.491A Sprain of other ligament of right ankle, initial encounter; W19.XXXA Unspecified fall, initial encounter; Y93.89 Activity, other specified; Y92.89 Other specified places as the place of occurrence of the external cause; Y99.8 Other external cause status
CPT/HCPCS: 73562-TC-LT-FY; 73562-TC-RT-FY; 73610-TC-LT-FY; 73610-TC-RT-FY; 73630-TC-LT; 73630-TC-RT-FY; 93970-TC; 96372; 99281-25

== ENCOUNTER 2019-05-13 07:29 | Emergency (ER) | payer SELFPAY ==
[2019-05-13 07:34] VITALS: TEMP 99.7; BMI 35.6
--- NOTE | 2019-05-13 08:21 | PDOC ---
History of Present Illness - General Chief Complaint: Respiratory Stated Complaint: DIFFICULTY BREATHING/FEVER Time Seen by Provider: 05/13/19 08:12 History Source: Patient Exam Limitations: No Limitations - History of Present Illness Initial Comments: 05/13/19 08:14 [id number] with h/o anxiety, long-time smoker, and GERD who p/w flu-like symptoms for the past 3 days. States she did not have her influenza vaccination this fall /winter, has not had any known sick contacts but works as a ict business analyst, and for the past three days she has had fever, chills, nausea, decreased appetite, malaise, and head-to-toe body aches. Taking cefuroxime and a cough medication/ decongestant from someone else's prescriptions, and Motrin with last dose last night. Past History - Past Medical History Allergies/Adverse Reactions: Allergies Allergy/AdvReac Type Severity Reaction Status Date / Time No Known Allergies Allergy Verified 11/30/18 16:11 Home Medications: Ambulatory Orders NK [No Known Home Medication] 05/13/19 COPD: No DVT: No GI Disorders: Yes (gerd) Psychiatric Problems: Yes (ANXIETY) - Surgical History Appendectomy: Yes - Immunization History Immunization Up to Date: Yes - Psycho Social/Smoking Cessation Hx Smoking History: Current every day smoker Have you smoked in the past 12 months: Yes Number of Cigarettes Smoked Daily: 10 Information on smoking cessation initiated: No 'Breaking Loose' booklet given: 10/05/17 Hx Alcohol Use: No Drug/Substance Use Hx: No Substance Use Type: None Review of Systems - Review of Systems Able to Perform ROS?: Yes Comments:: 05/13/19 09:45 GEN: fever, chills, malaise, generalized weakness, no weight change HEENT: no ear pain, sore throat, vision change, or eye pain CV: chest tightness, no palpitations, lightheadedness, syncope, or edema RESP: cough, wheezing, or SOB GI: nausea, vomiting, no abdominal pain, diarrhea, constipation, or white/black/ bloody stool : no dysuria, hematuria, incontinence, retention, bleeding, or discharge MSK: no neck/back pain, muscle weakness/pain, or joint swelling/pain NEURO: headache, no seizure, vertigo, numbness, tingling, or focal weakness PSYCH: no substance use, no behavior change SKIN: no jaundice, no rash ROS otherwise negative except as noted in HPI *Physical Exam - Vital Signs Last Vital Signs Temp Pulse Resp BP Pulse Ox 99.7 F H 103 H 22 H 140/82 95 05/13/19 07:31 05/13/19 07:31 05/13/19 07:31 05/13/19 07:31 05/13/19 07:31 - Physical Exam 05/13/19 09:47 GENERAL: tired-appearing, A/Ox4, no distress, answers questions appropriately, wearing face mask HEENT: PERRLA, EOMI, moist mucous membranes NECK/BACK: no midline ttp, no spinal stepoff or deformity, no hematoma, full ROM , neck supple CARDIOVASCULAR: tachycardic, normal S1S2, no MGR, strong peripheral pulses, capillary refill <2 seconds, extremities wwp, no edema LUNGS/RESPIRATORY: no respiratory distress, b/l expiratory wheezes and rhonchi GI/ABDOMEN: symmetric [id number], normoactive BS, soft, no ttp, no midline pulsatile masses : no CVA tenderness EXTREMITIES: no muscle atrophy, no acute deformity SKIN: warm and dry, no pallor, no jaundice, no rash, no bruising, no skin breakdown, no cuts, no lesions NEUROLOGICAL: GCS 15, CN II-XII grossly intact, 5/5 strength proximally and distally, no facial droop ED Treatment Course - LABORATORY CBC & Chemistry Diagram: 05/13/19 09:00 05/13/19 09:00 Medical Decision Making - Medical Decision Making Patient p/w flu-like symptoms. Initial Vital Signs Temp Pulse Resp BP Pulse Ox 99.7 F H 103 H 22 H 140/82 95 05/13/19 07:31 05/13/19 07:31 05/13/19 07:31 05/13/19 07:31 05/13/19 07:31 Exam: As noted in Physical Exam section. DDX IBNLT: Influenza, other viral syndrome, less likely any other more serious etiology i.e. bacterial gastroenteritis given mild symptoms, normal vitals and exam. W/U ordered: Labs as noted below, CXR, EKG, hCG TX ordered: Tylenol, Zofran, IVF, albuterol MDI Laboratory Tests 05/13/19 05/13/19 05/13/19 09:00 09:00 09:00 WBC 5.0 RBC 4.54 Hgb 13.8 Hct 40.5 MCV 89.1 MCH 30.5 MCHC 34.2 RDW 13.1 Plt Count 204 MPV 8.0 Absolute Neuts (auto) 3.5 Neutrophils % 71.0 Lymphocytes % 19.6 Monocytes % 8.9 Eosinophils % 0.1 D Basophils % 0.4 Nucleated RBC % 0 Sodium 133 L Potassium 4.8 Chloride 101 Carbon Dioxide 28 Anion Gap 4 L BUN 12.2 Creatinine 0.5 L Est GFR (CKD-EPI)AfAm 127.17 Est GFR (CKD-EPI)NonAf 109.72 Random Glucose 92 Calcium 8.6 Magnesium 1.9 Total Bilirubin 0.4 AST 38 H ALT 36 Alkaline Phosphatase 93 Troponin I < 0.02 Total Protein 7.5 Albumin 3.6 Influenza A (Rapid) Influenza B (Rapid) 05/13/19 09:00 WBC RBC Hgb Hct MCV MCH MCHC RDW Plt Count MPV Absolute Neuts (auto) Neutrophils % Lymphocytes % Monocytes % Eosinophils % Basophils % Nucleated RBC % Sodium Potassium Chloride Carbon Dioxide Anion Gap BUN Creatinine Est GFR (CKD-EPI)AfAm Est GFR (CKD-EPI)NonAf Random Glucose Calcium Magnesium Total Bilirubin AST ALT Alkaline Phosphatase Troponin I Total Protein Albumin Influenza A (Rapid) Negative Influenza B (Rapid) Negative CXR: Nothing acute DISCHARGE This patient has gotten significant relief of symptoms while in the ED. On last reassessment, vitals are wnl, and exam is benign. H&P is not concerning for emergency-level pathology at this time. This patient is appropriate for discharge with close outpatient follow up. They are comfortable with this plan and will follow up with their PCP in 1-3 days. Specific return precautions are discussed and they will come back to the ER if necessary. Discharge - Discharge Information Problems reviewed: Yes Clinical Impression/Diagnosis: Nausea Fever Qualifiers: Fever type: unspecified Qualified Code(s): R50.9 - Fever, unspecified Condition: Stable Disposition: HOME - Admission No - Follow up/Referral Referrals: Vanessa Fernandez MD [Primary Care Provider] - - Patient Discharge Instructions Additional Instructions: You were seen in the ER for influenza-like symptoms. We did a thorough history and a physical exam, tested your blood work, a chest x-ray, and an influenza swab, and gave you medications which did help with your symptoms. After our assessment, we do not believe you are having a medical emergency at this time, and we believe you are safe to go home. Be sure to drink plenty of fluids - this is one of the most important things you can do to help. If you are unable to eat much for the next couple of days, that is okay, but you must be able to keep down fluids like soup, tea, water, etc. Take Tylenol and Motrin as needed for fever or mild discomfort. Please follow up with your primary care provider in 1-3 days. Call their clinic, tell them you were seen in the ER, and tell them you need a follow-up. If you have any new or worsening symptoms, especially inability to tolerate fluids, fainting, severe pain, vomiting blood, bloody diarrhea, rash, or other concerning symptoms, please come back to the ER at any time (24 hours a day). If you are having severe or life threatening symptoms, or symptoms that make it unsafe to drive or have someone drive you, please call 911. - Post Discharge Activity
--- NOTE | 2019-05-13 08:22 | PDOC ---
Attending Attestation - Resident Resident Name: FrandyMamta - ED Attending Attestation I have performed the following: I have examined & evaluated the patient, The case was reviewed & discussed with the resident, I agree w/resident's findings & plan, Exceptions are as noted - HPI HPI: 05/13/19 10:08 54 years old anxiety longtime smoker GERD presents with flulike symptoms x3 days fever chills body aches wheezing did not receive her flu vaccine. Symptoms are mild to moderate persistent constant no exacerbating relieving factors. - Physicial Exam PE: 05/13/19 10:08 Vitals: Triage Vital signs reviewed General Appearance: No acute distress, well nourished well developed, Head: Atraumatic, Chest Wall: Nontender Cardiac: Regular rate and rhythym, no murmurs, no rubs, no gallops, Lungs: Wheezing bilaterally Abdomen: Soft, non distended, normal bowel sounds, non tender to palpation breath Extremities: Full range of motion to all extremities, no cyanosis, clubbing, or edema Skin: Warm and dry, no rashes or lesions, no rash, no petechiae Psych: Normal mood, normal affect - Medical Decision Making 05/13/19 11:55 History and examination consistent with influenza-like illness complicated by mild reactive airway disease Labs within normal limits patient received MDI in the emergency department Her respiratory symptoms have improved She feels comfortable returning home her flu is negative she will follow-up with her doctor this week Findings, the need for follow-up and strict return instructions discussed with patient.
[2019-05-13] MEDS ORDERED: ACETAMINOPHEN 500 MG TABLET (FP) PO ONE (08:32)
[2019-05-13] MEDS ORDERED: ACETAMINOPHEN 1000 MG/100 ML VIAL (NON FORMULARY) IVPB ONE (08:33)
[2019-05-13] MEDS ORDERED: SODIUM CHLORIDE 0.9% 500 ML INFUS.BAG IV ONE (08:33)
[2019-05-13] MEDS ORDERED: ONDANSETRON 4 MG/2 ML VIAL IVPUSH ONE (08:35)
[2019-05-13 09:35] LABS: BASO % 0.4 % (0-2.0); EOS % 0.1 % (0-4.5); HEMATOCRIT 40.5 % (32.4-45.2); HEMOGLOBIN 13.8 GM/dL (10.7-15.3); LYMPH % 19.6 % (8-40); MCH 30.5 pg (25.7-33.7); MCHC 34.2 g/dl (32.0-36.0); MEAN CELL VOLUME 89.1 fl (80-96); MONO % 8.9 % (3.8-10.2); PLATELET COUNT 204 K/MM3 (134-434); RBC 4.54 M/mm3 (3.60-5.2); RDW 13.1 % (11.6-15.6)
[2019-05-13] MEDS ORDERED: ONDANSETRON 4 MG/2 ML VIAL ONE (09:36)
[2019-05-13] MEDS ORDERED: ALBUTEROL SO4 8 GM HFA INHALER IH ONE (09:36)
[2019-05-13] MEDS ORDERED: ACETAMINOPHEN INJECTION 100 ML IVPB ONE (09:36)
[2019-05-13 10:01] LABS: ALBUMIN 3.6 g/dl (3.4-5.0); BILIRUBIN,TOTAL 0.4 mg/dL (0.2-1); BLOOD UREA NITROGEN 12.2 mg/dL (7-18); CALCIUM 8.6 mg/dL (8.5-10.1); CREATININE 0.5 mg/dL (0.55-1.3); MAGNESIUM 1.9 mg/dL (1.8-2.4); POTASSIUM 4.8 mmol/L (3.5-5.1); TOT PROT 7.5 g/dl (6.4-8.2)
[2019-05-13 12:02] VITALS: BP 124/75; PULSE 95
== END 2019-05-13 12:02 | disposition home or self-care (01) ==
LOC: JER 07:29
PROC: 3E033GC Introduction of Other Therapeutic Substance into Peripheral Vein, Percutaneous Approach (ICD-10-PCS; principal; 2019-05-13)
DX: J11.1 Influenza due to unidentified influenza virus with other respiratory manifestations (principal); K21.9 Gastro-esophageal reflux disease without esophagitis; F41.9 Anxiety disorder, unspecified; F17.210 Nicotine dependence, cigarettes, uncomplicated
CPT/HCPCS: 36415; 71046-TC-FY; 80053; 83735; 84484; 85025; 87804; 99284-25; J0131